=== PATIENT | male | born 1965 | race Caucasian/White ===

== ENCOUNTER 2021-10-21 23:40 | Inpatient (IN) | payer MEDICARE, SELFPAY ==
--- NOTE | 2021-10-21 23:41 | XRR_ITS ---
PROCEDURE INFORMATION: Exam: XR Chest Exam date and time: 10/21/2021 11:41 PM Age: 55 years old Clinical indication: Chest pressure; Prior surgery; Surgery type: Cabg; Patient HX: Severe chest pain. ; Additional info: Cp TECHNIQUE: Imaging protocol: XR of the chest. Views: 1 view. COMPARISON: No relevant prior studies available. FINDINGS: Lungs: There is ill-defined ground-glass opacity in the central lower lungs bilaterally. There is a 7 mm left suprahilar pulmonary nodule or prominent vessel. Pleural spaces: There is no pleural effusion or pneumothorax. Heart/Mediastinum: There is mild enlargement of the cardiac silhouette. Bones/joints: Sternal wires are present. There is no displacement to suggest sternal dehiscence. There are healed right lateral rib fractures. XR/XR chest 1V portable [id number] IMPRESSION: 1. Probable mild pulmonary edema. 2. Cardiac enlargement. 3. 7 mm left lung nodule versus prominent vessel seen on end. Recommend nonemergent follow-up chest CT. Radiation Dose CTDIVOL = (mGy): DLP = (mGy-cm)
--- NOTE | 2021-10-21 23:42 | ECG_ITS ---
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 Measurements Intervals [place] Rate: 131 P: [place]: QRS: 138 QRSD: 136 T: 80 QT: 385 QTc: 570 Interpretive Statements Sinus tachycardia with PVCs INTRAVENTRICULAR CONDUCTION DELAY [130+ ms QRS DURATION] RIGHT VENTRICULAR HYPERTROPHY [SOME/ALL OF: PROMINENT R IN V1, LATE TRANSITION, RAD, KEYSHA, SSS] LATERAL MYOCARDIAL INFARCTION , PROBABLY RECENT [40+ ms Q WAVE AND/OR ST/T ABNORMALITY IN I/aVL/V5/V6] No previous ECG available for comparison Electronically Signed On 10-22-2021 16:05:19 MORTGAGE PROCESSING CLERK by Amira August M.D. [email or web address] [email or web address].Gallery [employer]/store/NU/[id number] f
[2021-10-21 23:49] VITALS: BP 174/100; TEMP 36.4; O2SAT 95; BMI 24.4
--- NOTE | 2021-10-21 23:52 | ED_ITS ---
HPI - Chest Pain General: Chief Complaint: Chest Pain Stated Complaint: CP Time Seen by Provider: 10/21/21 23:41 Source: patient and EMS Mode of arrival: EMS Limitations: no limitations History of Present Illness: HPI narrative: 55-year-old male who is a history of coronary artery disease states that he had a open heart surgery in 2004. States he has not seen his medical insurance collector in years she states that he has been having chest pain since this morning its been constant states he has had a cough and congestion and some dyspnea for days and his pain currently is worse when he coughs he denies any vomiting or diarrhea he has had his Covid vaccine denies any fevers. Denies any recent long trips. Associated symptoms: Reports dyspnea; Deny abdominal pain, fever(s), nausea or vomiting Review of Systems Const: Denies: fever(s), chills, body aches or change in appetite Eyes: Denies: blurry vision or eye discomfort ENMT: Denies: throat pain or dental pain Card: Reports: chest pain Resp: Reports: dyspnea and non-productive cough GI: Denies: abdominal pain, nausea, vomiting or diarrhea : Denies: dysuria Musc: Denies: neck pain or back pain Skin/Breast: Denies: rash Neuro: Denies: headache(s) Psych: Denies: depression Shane/Lymph: Denies: easy bruising All/Imm: Denies: urticaria Physical Exam Const: COMMON NORMALS: no acute distress, patient oriented x3 and healthy appearing HENMT: COMMON NORMALS: normocephalic and atraumatic HEAD & SCALP: normocephalic and atraumatic Eye: COMMON NORMALS: Equal, round and reactive pupils present and EOMs intact bilaterally PUPIL: Yes Equal, round and reactive pupils present Neck/C-Spine: COMMON NORMALS: full ROM and supple Chest: COMMONS NORMALS: normal inspection of the chest and normal palpation of entire chest wall Resp: COMMON NORMALS: normal respiratory effort, No retractions and No use of accessory muscles AUSCULTATION: rales Cardio: COMMON NORMALS: regular rate, regular rhythm and No murmurs present (Cardio) RATE: regular rate RHYTHM: regular rhythm GI: COMMON NORMALS: Normal to inspection, nondistended, normoactive bowel sounds present, Soft to palpation, non-tender and no masses PALPATION: Yes Soft to palpation Extremity: COMMON NORMALS: normal to inspection and full ROM Neuro: COMMON NORMALS: patient oriented x3, moves all extremities and no focal motor deficits Psych: COMMON NORMALS: mental status grossly normal, Normal thought process present and cooperative THOUGHT PROCESS: Normal thought process present Skin: COMMON NORMALS: no rashes or lesions noted and no wounds GENERAL SKIN EXAM: no rashes or lesions noted Course Vital Signs: Vital signs: Vital Signs Temperature 97.6 F 10/21/21 23:49 Pulse Rate 123 H 10/22/21 02:15 Respiratory Rate 24 H 10/22/21 02:15 Blood Pressure 162/106 10/22/21 02:15 Pulse Oximetry 96 10/22/21 02:15 MDM - Chest Pain MDM Narrative: Medical decision making narrative: Patient presents here with chest pain 2-hour troponin elevated consistent with an NSTEMI has been pain-free here patient has congestive heart failure as well as spoke to the hospitalist will admit at this time patient's been stable in the ER. Lab Data: Labs: Lab Results 10/21/21 10/21/21 10/21/21 23:50 23:50 23:50 WBC 15.1 10^3/uL H 10 ^3/uL (4.0-10.0) RBC 5.08 10^6/uL 10^6 /uL (4.1-5.3) Hgb 15.6 g/dL g/dL (11.7-16.6) Hct 47.7 % % (42.0-52.0) MCV 93.9 fl fl (80-94) MCH 30.7 pg pg (28.0-34.0) MCHC 32.7 g/dL g/dL (30.0-36.0) RDW 13.2 % % (12.1-15.1) Plt Count 137 10^3/cmm 10^3 /cmm (130-400) MPV 13.1 fL H fL (7.4-10.4) Neut % (Auto) 93.2 % % Lymph % (Auto) 3.1 % % [place] % (Auto) 3.2 % % Eos % (Auto) 0.0 % % Baso % (Auto) 0.1 % % Neut # (Auto) 14.05 10^3/uL H 1 0^3/uL (1.8-7.7) Lymph # (Auto) 0.5 10^3/uL L 10^ 3/uL (0.8-4.8) [place] # (Auto) 0.5 10^3/uL 10^3/ uL (0.2-0.9) Eos # (Auto) 0.0 10^3/uL 10^3/ uL (0.0-0.8) Baso # (Auto) 0.0 10^3/uL 10^3/ uL (0.0-0.1) Nucleated RBC % (a uto) 0 % % Nucleated RBCs # 0.0 /100WBC /100W BC Sodium 139 mmol/L mmol/L (136-145) Potassium 3.2 mmol/L L mmol /L (3.5-5.1) Chloride 102 mmol/L mmol/L (98-107) Carbon Dioxide 16 mmol/L L mmol/ L (22-29) Anion Gap 24.2 H (5-19) BUN 16 mg/dL mg/dL (6-20) Creatinine 1.3 mg/dL H mg/dL (0.7-1.2) GFR Calculation 57.3 mL/min L mL/ min (90-130) Glucose 191 mg/dL H mg/dL (65-115) Calculated Osmolal ity 294 mOsm/kg mOsm/ kg (285-295) Calcium 8.8 mg/dL mg/dL (8.5-10.5) Total Bilirubin 0.4 mg/dL mg/dL (0.15-1.2) AST 19 U/L U/L (0-40) ALT 26 U/L U/L (0-41) Alkaline Phosphata se 80 IU/L IU/L (40-130) Troponin T Baselin e 65 ng/L H ng/L (0-15) Troponin T 120 Min [place] Delta Troponin T NT-Pro-B Natriuret Pep Total Protein 6.7 g/dL g/dL (6.6-8.7) Albumin 4.4 g/dL g/dL (3.5-5.2) Globulin 2.3 g/dL g/dL (1.3-4.6) SARS-CoV-2 Ag (Rap id) 10/21/21 10/22/21 10/22/21 23:50 00:10 01:03 WBC RBC Hgb Hct MCV MCH MCHC RDW Plt Count MPV Neut % (Auto) Lymph % (Auto) [place] % (Auto) Eos % (Auto) Baso % (Auto) Neut # (Auto) Lymph # (Auto) [place] # (Auto) Eos # (Auto) Baso # (Auto) Nucleated RBC % (a uto) Nucleated RBCs # Sodium Potassium Chloride Carbon Dioxide Anion Gap BUN Creatinine GFR Calculation Glucose Calculated Osmolal ity Calcium Total Bilirubin AST ALT Alkaline Phosphata se Troponin T Baselin e Troponin T 120 Min [place] 148.8 ng/L H ng/L (0-15) Delta Troponin T 83.8 ABS# H* ABS# (0-10) NT-Pro-B Natriuret Pep 3298 pg/mL H pg/m L (0-125) Total Protein Albumin Globulin SARS-CoV-2 Ag (Rap id) Negative (Negative) EKG Data^: EKG 1: Attestation: I personally reviewed and interpreted this EKG as follows: EKG interpretation date: 10/21/21 EKG interpretation time: 23:55 Interpretation: sinus tach hr 131 no stemi qrs 136 qtc 462 Discharge Plan Discharge Patient Disposition: Admitted As Inpatient Admit Provider: Evelyn Otero Clinical Impression: Non-ST elevation MT (NSTEMI) Condition: Stable Coding Level of Care Code ED Hot Box Checker for Chg Fwd Exam Comprehensive
[2021-10-21 23:58] LABS: Basophils % 0.1 %; Hematocrit 47.7 % (42.0-52.0); Hemoglobin 15.6 g/dL (11.7-16.6); Lymphocytes # 0.5 10^3/uL (0.8-4.8); Lymphocytes % 3.1 %; Mean Corpuscular HGB Conc 32.7 g/dL (30.0-36.0); Mean Corpuscular Hemoglobin 30.7 pg (28.0-34.0); Mean Corpuscular Volume 93.9 fl (80-94); Mean Platelet Volume 13.1 fL (7.4-10.4); Monocytes # 0.5 10^3/uL (0.2-0.9); Monocytes % 3.2 %; Neutrophils # 14.05 10^3/uL (1.8-7.7); Neutrophils % 93.2 %; Nucleated Red Blood Cells % 0 %; Platelet Count 137 10^3/cmm (130-400); Red Blood Count 5.08 10^6/uL (4.1-5.3); Red Cell Distribution Width 13.2 % (12.1-15.1); White Blood Count 15.1 10^3/uL (4.0-10.0)
[2021-10-22] VITALS (47 sets, daily range): BP systolic 99–162; BP diastolic 63–120; PULSE 18–132; RESP 15–36; TEMP 37.1–37.3; O2SAT 85–96; BMI 24.2
[2021-10-22 00:20] LABS: Troponin(5th) Baseline 65 ng/L (0-15)
[2021-10-22 00:22] LABS: Alanine Aminotransferase 26 U/L (0-41); Albumin Level 4.4 g/dL (3.5-5.2); Alkaline Phosphatase 80 IU/L (40-130); Anion Gap 24.2 (5-19); Aspartate Amino Transferase 19 U/L (0-40); Blood Urea Nitrogen 16 mg/dL (6-20); Calcium 8.8 mg/dL (8.5-10.5); Carbon Dioxide 16 mmol/L (22-29); Chloride 102 mmol/L (98-107); Globulin 2.3 g/dL (1.3-4.6); Glomerular Filtration Rate 57.3 mL/min (90-130); Glucose 191 mg/dL (65-115); Osmolality Calculated 294 mOsm/kg (285-295); Potassium 3.2 mmol/L (3.5-5.1); Sodium 139 mmol/L (136-145); Total Bilirubin 0.4 mg/dL (0.15-1.2); Total Protein 6.7 g/dL (6.6-8.7)
[2021-10-22 00:30] LABS: SARS Covid-2 Antigen Negative (Negative)
[2021-10-22] MEDS: sodium chloride 0.9% 1,000 ML 999 ML IV (01:05)
--- NOTE | 2021-10-22 01:22 | CTR_ITS ---
PROCEDURE INFORMATION: Exam: CTA Chest With Contrast Exam date and time: 10/22/2021 1:22 AM Age: 55 years old Clinical indication: Cough and shortness of breath; Chest pressure; Prior surgery; Surgery type: Cabg; Patient HX: Central chest pain with cough and SOB. TECHNIQUE: Imaging protocol: Computed tomographic angiography of the chest with contrast. 3D rendering (Not supervised by radiologist): MIP and/or 3D reconstructed images were created by the technologist. Radiation optimization: All CT scans at this facility use at least one of these dose optimization techniques: automated exposure control; mA and/or kV adjustment per patient size (includes targeted exams where dose is matched to clinical indication); or iterative reconstruction. Contrast material: VISI 320; Contrast volume: 62 ml; Contrast route: INTRAVENOUS (IV); COMPARISON: CR (CHEST, ) 10/21/2021 11:55 PM RADIATION DOSE METRICS: Total DLP (mGy-cm): 633.9 FINDINGS: Pulmonary arteries: No pulmonary embolism. There is enlargement of the pulmonary vascularity. Aorta: 3.9 x 3.6 cm infrarenal abdominal aortic aneurysm with large amount of mural thrombus. Lungs: There is thickening of the interstitial markings. Pleural spaces: Small bilateral pleural effusions. Heart: The heart is mildly enlarged. Lymph nodes: Multiple, nonspecific, enlarged mediastinal lymph nodes, likely reactive. Bones/joints: There has been a median sternotomy. Soft tissues: Unremarkable. CT/CT angio chest PE protcl [id number] IMPRESSION: 1. No pulmonary embolism. 2. Congestive heart failure. 3. 3.9 x 3.6 cm infrarenal abdominal aortic aneurysm with large amount of mural thrombus. 4. Small bilateral pleural effusions. 5. Multiple, nonspecific, enlarged mediastinal lymph nodes, likely reactive. Radiation Dose CTDIVOL = (mGy): DLP = 633.9 (mGy-cm)
[2021-10-22 01:28] LABS: NT Pro B Type Natriuretic Pept 3298 pg/mL (0-125)
[2021-10-22 01:45] LABS: Troponin 5 2HR 148.8 ng/L (0-15); Troponin 5 2HR Delta 83.8 ABS# (0-10)
[2021-10-22] MEDS: iodixanol 320 mg/mL 100mL Btl IV (01:59)
[2021-10-22] MEDS: enoxaparin 80 mg/0.8 mL Syringe SUBCUT ×2 (02:22→13:24)
--- NOTE | 2021-10-22 03:52 | USCV_ITS ---
BLADIMIR LLOYD Age: 55 Gender: M : 1965 Exam Date: 10/22/2021 13:04 Ordering Phys: Evelyn Otero MD Technologist: Reed Valera [place] [facility] [place]: NSTEMI BP: 130 / 86 HR: 103 Rhythm: Sinus Technical Quality: Adequate MEASUREMENTS (Male / Female) Normal Values 2D ECHO LV Diastolic Diameter PLAX 5.5 cm 4.2 - 5.9 / 3.9 - 5.3 cm LV Systolic Diameter PLAX 4.9 cm IVS Diastolic Thickness 1.2 cm 0.6 - 1.0 / 0.6 - 0.9 cm IVS Systolic Thickness 1.5 cm LVPW Diastolic Thickness 1.8 cm 0.6 - 1.0 / 0.6 - 0.9 cm LVPW Systolic Thickness 1.6 cm LVOT Diameter 2.0 cm LV Ejection Fraction 2D Teich 23.2 % LV Ejection Fraction MOD 2C 10.5 % LV Ejection Fraction 2C AL 13.8 % LA Diameter 4.8 cm LA Width 4.3 cm LA Height 6.3 cm RA Width 4.2 cm RA Height 5.6 cm Aorta at Sinotubular Diameter 3.0 cm M-MODE Aortic Annulus Diameter 3.5 cm LA Ao Ratio MM 1.5 DOPPLER AV Peak Velocity 81.7 cm/s LVOT Peak Velocity 60.0 cm/s AV Area Cont Eq vti 2.3 cm squared AV Area Cont Eq pk 2.3 cm squared MV E' Velocity 4.0 cm/s TR Peak Velocity 412.1 cm/s TR Peak Gradient 67.9 mmHg TR Mean Velocity 284.0 cm/s TR Mean Gradient 36.0 mmHg TR Velocity Time Integral 114.8 cm RV Acceleration Time 0.1 s RV Ejection Time 0.3 s RV AcT/ET 0.4 FINDINGS Left Ventricle Mildly increased left ventricular cavity size with increased left ventricular wall thickness. Eccentric left ventricular hypertrophy. Severely decreased left ventricular systolic function. Left ventricular ejection fraction is estimated at 25 %. Global hypokinesis with severe hypokinesis of basal to mid anterior, basal inferior vega. Abnormal diastolic function. Right Ventricle Moderately dilated right ventricle with moderately decreased right ventricle systolic function. Right ventricular systolic pressure 69 mmHg. Right Atrium Normal right atrial size. Right atrial pressure estimated at 15 mmHg. Left Atrium Moderately increased left atrial size. Mitral Valve Restricted movement of posterior mitral valve leaflet. No mitral valve stenosis. At least moderate somewhat posteriorly directed mitral valve regurgitation. Aortic Valve Mildly thickened trileaflet aortic valve. No aortic valve stenosis. No aortic valve regurgitation. Tricuspid Valve Structurally normal tricuspid valve. Moderate tricuspid valve regurgitation. Pulmonic Valve Structurally normal pulmonic valve. No pulmonary valve stenosis. Trace pulmonary valve regurgitation. Pericardium No pericardial effusion. Aorta Normal size aortic root and dilated proximal ascending aorta measured anteroposteriorly at 3.9 cm. Dilated inferior vena cava with less than 50% respiratory variation. CONCLUSIONS 1. Mildly increased left ventricular cavity size. Eccentric left ventricular hypertrophy. Severely decreased left ventricular systolic function. Left ventricular ejection fraction is estimated at 25 %. Global hypokinesis with severe hypokinesis of basal to mid anterior, basal inferior vega. Abnormal diastolic function. 2. Moderately dilated right ventricle with moderately decreased right ventricle systolic function. 3. Severe pulmonary hypertension with pulmonary artery pressure estimated at 69 mmHg. 4. At least moderate somewhat posteriorly directed mitral valve regurgitation. 5. Moderate tricuspid valve regurgitation. 6. Dilated proximal ascending aorta measured anteroposteriorly at 3.9 cm. 7. No prior similar studies to compare. Amira Auugst MD (Electronically Signed) Final Date: 22 October 2021 16:25 S
[2021-10-22] MEDS: metoprolol tartrate 25 mg Tablet 12.5 MG PO ×3 (04:25→08:44)
[2021-10-22] MEDS: FUROsemide 10 mg/mL SDV 2mL 20 MG IVP (04:25)
[2021-10-22] MEDS: potassium chloride ER 20 mEq Tablet 40 MEQ PO ×2 (04:25→11:33)
--- NOTE | 2021-10-22 05:30 | P.HP_ITS ---
Providers/Chief Complaint Admitting Physician: Evelyn Otero MD Chief Complaint: CP History of Present Illness BLADIMIR LLOYD is a 55 year old male with PMH CAD s/p CABG many years ago lost to follow up presenting to the ER today c/o chest pain whc=ihc has been intermittent for the past few days, worsened since tis morning. Also c/o wor sening dyspnea, orthopnea over this same time frame. Chest pain resolved with being given morphine and S/L nitroglycerin. EKG shows sinus tachycardia, ST-T wave depressions in Avl, V5,V6 and prolonged qtc interval >500msec. Baseline troponin at 65, 2 hr delta at >80. Cta chest shows no PE, small B/L pleural effusions, 3.9 x 3.6 cm infrarenal abdominal aortic aneurysm with large amount of mural thrombus. Review of Systems General: Reports: 10 or more systems reviewed and unremarkable except in HPI and below Const: Denies: fever(s), chills or body aches Eyes: Denies: change in vision, blurry vision or photophobia ENMT: Reports: hoarseness; Denies: throat pain, enlarged tonsils, odynophagia or nasal congestion Card: Denies: chest pain, palpitations, irregular heart rhythm, edema, swelling of feet/ankles, lightheadedness, pre-syncope, dyspnea on exertion or orthopnea Resp: Denies: dyspnea, productive cough, non-productive cough, wheezing, stridor, pain on inspiration, change in phlegm color, hemoptysis or chest congestion GI: Denies: abdominal pain, nausea, vomiting, hematemesis, coffee ground emesis, dysphagia, heartburn, diarrhea, constipation, GI cramping, change in stool character, hematochezia or melena : Denies: flank pain, dysuria, urinary frequency, urinary urgency, urinary hesitancy or hematuria Musc: Denies: neck pain, back pain, extremity pain, joint swelling, joint warmth or deformity Neuro: Denies: headache(s), numbness in extremities, weakness in extremities, sensory changes, difficulty walking, frequent falls, dizziness, vertigo, behav ioral changes, Slurred speech present or seizure-like activity Psych: Denies: anxiety, depression, suicidal ideation or homicidal ideation Endo: Denies: polyuria, polydipsia, tired all the time, cold intolerance or hot flashes Shane/Lymph: Denies: easy bruising or easy bleeding Medications/Allergies Home Medications Medication Instructions Recorded Confirmed Last Taken Type No Known Home Medications 10/22/21 10/22/21 Unknown History Allergies Allergy/AdvReac Type Severity Reaction Status Date / Time No Known Allergies Allergy Verified 10/22/21 03:43 PFSH Acute PFSH: Medical History (Updated 10/22/21 @ 05:44 by Evelyn Otero MD) CAD (coronary artery disease) Vitals/I&O/Wt Last Vital Signs Temp 99.2 F 10/22/21 04:09 Pulse 126 H 10/22/21 04:09 Resp 18 10/22/21 05:10 BP 153/91 10/22/21 04:09 Pulse Ox 93 10/22/21 05:10 10/21/21 10/21/21 10/22/21 14:59 22:59 06:59 Intake Total 1480 / 1480 Output Total 250 / 250 Balance 1230 / 1230 Weight last 48 hrs Weight 83.325 kg Weight 83.325 kg Weight 83.915 kg Physical Exam Narrative: EXAM NARRATIVE: General: No acute distress, AO x3 HEENT: PERRLA, pupils bilaterally equal and reactive, pallors not present Chest: Normal vesicular breath sounds, no added sounds, equal good air entry bilaterally CVS: S1-S2 regular, no murmurs, no tachycardia, no gallops, no rubs Abdomen: Soft, nontender, no organomegaly, bowel sounds present Neuro: No focal deficits, no facial deformity, AO x3, power 5/5 in all limbs Data : 10/21/21 23:50 10/21/21 23:50 A&P Assessment and plan (1) Non-ST elevation TN (NSTEMI): Elevated troponins with 2 hr delta at >80, EKG changes as above Start Asa 81mg, atorvastatin 40mg, metoprolol 12.5mg po BID Note made of AAA with mural trombus start lovenox 1mg/kg q12h check mag level given prolonged qtc Lasix 20mg iv x 1 as patient is lasix naive- closely monitor urine output, kidney function whil on diuresis Supplement K with 40meq po KCL prn morhine for pain control Cardiology has been consulted from ER NPO post midnight in case of cardiac cath Status: Acute (2) CHF (congestive heart failure): Status: Acute Attestations Medical Necessity Statement*: >2midnight admission anticipated for above defined care Coding Level of Care Code Acute Turf And Grounds Supervisor for Ev De Paz Diagnoses Non-ST elevation TN (NSTEMI) I21.4 CHF (congestive heart failure) I50.9
--- NOTE | 2021-10-22 05:42 | ECG_ITS ---
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 Measurements Intervals [place] Rate: 114 P: 85 NM: 131 QRS: 143 QRSD: 129 T: 69 QT: 364 QTc: 502 Interpretive Statements SINUS TACHYCARDIA LEFT ATRIAL ENLARGEMENT [-0.15mV P WAVE IN V1/V2] POSSIBLE RIGHT VENTRICULAR HYPERTROPHY [SOME/ALL OF: PROMINENT R IN V1, LATE TRANSITION, RAD, KEYSHA, SSS] Compared to ECG 10/21/2021 23:55:48 Intraventricular conduction delay no longer present Myocardial infarct finding no longer present Electronically Signed On 10-23-2021 6:37:45 ENVIRONMENTAL CHANGE ANALYST by Amira August M.D. [id number]
--- NOTE | 2021-10-22 06:18 | PC.NURSE ---
Admit Note Patient admitted to [facility] room 106 from ED via wheelchair. Patient up ambulating room. Denies pain at admission. Noted patient to have elevated heart rate. Dr Otero notified. Covering service notified. Patient presents with increased work of breathing and chest pain which is worse with exertion. Orders reviewed & will continue to monitor. Patient and/or inside sales account representative oriented to environment, equipment, and informed of the following as found in the admission booklet: patient rights & responsibilities, visitor policy, hand and respiratory hygiene practice. Other education includes: metoprol, magnesium, lasix, potassium. Patient verbalized complete understanding.
--- NOTE | 2021-10-22 06:44 | PM.CONSULT ---
Providers/Reason For Consult Consulting Physician/Specialty*: Dr. August, Cardiology Reason for Consult*: NSTEMI Attending Physician: Evelyn Otero MD History of Present Illness History of Present Illness BLADIMIR LLOYD is a 55 year old male with past medical history of premature coronary artery disease s/p CABG x3 in 2004, history of MN prior to that, history of stroke with right-sided weakness in early 1999, hypertension and chronic active smoker (2 pack/day for several years now is down to half pack per day). He has not seen a doctor in the last 10 years and is not taking any medications at home. His bypass surgery was at [facility] as per patient. He is new to our system and I do not have any of his records available. Patient started having shortness of breath on exertion since May or June that has progressively worsened over the last 2 months. He complains of orthopnea and some swelling in his legs. Complained of some chest tightness yesterday prior to arrival to ER physician and admitting physician that has since resolved. He denied having any chest pressure or pain during my evaluation. No fever, chills, hematochezia, melena or hematuria. Baseline troponin T was 65 that increased to 149 at 2 hours and at 393 at 6 hours. NT proBNP of 3298. His potassium was 3.2 and creatinine 1.3 on arrival. EKG on arrival showed sinus tachycardia with isolated PVCs, IVCD. Right axis deviation. Probably recent lateral MN. He received Lasix 20 mg IV x1 and received weight-based therapeutic Lovenox. He was started on ACS protocol and was admitted for further evaluation. He walked to the bathroom this morning and developed shortness of breath and became diaphoretic. He has been placed on BiPAP. Bumex and nitro drip were ordered which have not been started yet. EKG this morning with sinus tachycardia, left atrial enlargement interventricular conduction delay and inferolateral ST depression. Review of Systems General: Reports: 10 or more systems reviewed and unremarkable except in HPI and below Const: Denies: fever(s), chills or body aches Eyes: Denies: change in vision ENMT: Reports: hoarseness Card: Reports: swelling of feet/ankles and dyspnea on exertion; Denies: chest pain, palpitations, irregular heart rhythm, edema, lightheadedness or orthopnea Resp: Denies: dyspnea, productive cough, non-productive cough, wheezing, stridor, hemoptysis or chest congestion GI: Denies: abdominal pain, nausea, vomiting, hematemesis, coffee ground emesis, dysphagia, heartburn, diarrhea, constipation, hematochezia or melena : Denies: flank pain, dysuria, urinary frequency, urinary urgency or hematuria Musc: Denies: neck pain, back pain, extremity pain, joint swelling, joint warmth or deformity Neuro: Reports: weakness in extremities (Chronic left-sided) and difficulty walking; Denies: headache(s), numbness in extremities, sensory changes, frequent falls, dizziness, vertigo, behavioral changes or seizure-like activity Psych: Denies: anxiety or depression Endo: Denies: polyuria, polydipsia, tired all the time or cold intolerance Shane/Lymph: Denies: easy bruising or easy bleeding Meds/Allergies Home Medications and Allergies Home Medications Medication Instructions Recorded Confirmed Last Taken Type No Known Home Medications 10/22/21 10/22/21 Unknown History Allergies Allergy/AdvReac Type Severity Reaction Status Date / Time No Known Allergies Allergy Verified 10/22/21 03:43 Current Medications Current Medications Generic Name Dose Route Start Last Admin Trade Name Freq PRN Reason Stop Dose Admin Metoprolol Tartrate 12.5 mg 10/22/21 07:00 10/22/21 05:44 Metoprolol Tartrate 25 Mg Tablet PO 12.5 mg BID@0900,2100 PENNY Administration PFSH Acute PFSH: Medical History (Updated 10/22/21 @ 08:58 by Amira August MD) CAD (coronary artery disease) Dyslipidemia HTN (hypertension) Stroke Surgical History (Updated 10/22/21 @ 08:58 by Amira August MD) S/P CABG x 3 Vitals/I&O/Wt Last Vital Signs Temp 99.2 F 10/22/21 04:09 Pulse 115 H 10/22/21 06:16 Resp 18 10/22/21 05:10 BP 153/91 10/22/21 04:09 Pulse Ox 93 10/22/21 05:10 10/21/21 10/21/21 10/22/21 14:59 22:59 06:59 Intake Total 1971 / 1971 Output Total 1150 / 1150 Balance 822 / 822 Weight last 48 hrs Weight 183 lb 11.2 oz Weight 183 lb 11.2 oz Weight 185 lb Physical Exam Narrative: EXAM NARRATIVE: GENERAL: Averagely built and averagely nourished in no acute distress HEENT: Pupils equal round reactive to light. No pallor or icterus. NECK: No JVD, No carotid bruit. CARDIOVASCULAR SYSTEM: S1-S2 regular. No S3 or S4 present. No murmur rubs or gallops. RESPIRATORY SYSTEM: Chest clear to auscultation. No wheezes. bilateral rales+ ABDOMEN: Soft, nontender and nondistended. Normal bowel sounds present. EXTREMITIES: No cyanosis No edema. No signs of chronic venous insufficiency. ADVERTISING SOLICITOR: Patient is alert oriented ?3. Right upper and lower extremity weakness Data Imaging^: CTA Chest: Radiologist's impression: IMPRESSION: 1. No pulmonary embolism. 2. Congestive heart failure. 3. 3.9 x 3.6 cm infrarenal abdominal aortic aneurysm with large amount of mural thrombus. 4. Small bilateral pleural effusions. 5. Multiple, nonspecific, enlarged mediastinal lymph nodes, likely reactive. CXR: Radiologist's impression: IMPRESSION: 1. Probable mild pulmonary edema. 2. Cardiac enlargement. 3. 7 mm left lung nodule versus prominent vessel seen on end. Recommend nonemergent follow-up chest CT. A&P Assessment and plan (1) Non-ST elevation MN (NSTEMI): Continue aspirin, Lipitor low-dose metoprolol and Lovenox -Follow-up on echocardiogram -Agree with nitroglycerin drip and BiPaP -I will plan for coronary angiogram once more euvolemic Status: Acute (2) CHF (congestive heart failure): -Patient is due to receive Bumex 1 mg IV x1 this morning -Near 1.1 L of urine output overnight. May need another dose this afternoon -Follow-up on echocardiogram Status: Acute (3) HTN (hypertension): Status: Acute (4) Dyslipidemia: Status: Acute Additional A&P Information Coronary disease s/p CABG x3 Bilateral pleural effusion Infrarenal aortic aneurysm JAMIE secondary to renovascular congestion: Improving with diuresis Hypokalemia: Replaced Chronic active smoker Noncompliant History of stroke with residual right-sided weakness Thank you for allowing me to participate in patient's care. Please feel free to call with questions or concerns. Consult Attestations Time Spent in Patient Care: 16 - 35 minutes (>than 50% of time spent in counselling and/or direct pt care on unit). Coding Level of Care Code Acute Butcher Apprentice for Chg Fwd Diagnoses Non-ST elevation MN (NSTEMI) I21.4 CHF (congestive heart failure) I50.9 HTN (hypertension) I10 Dyslipidemia E78.5
[2021-10-22 07:03] LABS: Alcohol Level < 10 mg/dL (0-10)
[2021-10-22 07:06] LABS: Troponin 5 6HR 393.4 ng/L (0-15); Troponin 5 6HR Delta 328.4 ng/L (0-12)
[2021-10-22 07:10] LABS: Procalcitonin 0.04 ng/mL (0-0.5)
[2021-10-22 07:21] LABS: Anion Gap 19.5 (5-19); Blood Urea Nitrogen 16 mg/dL (6-20); Calcium 8.5 mg/dL (8.5-10.5); Carbon Dioxide 19 mmol/L (22-29); Chloride 105 mmol/L (98-107); Glomerular Filtration Rate 62.9 mL/min (90-130); Glucose 141 mg/dL (65-115); Magnesium 1.9 mg/dL (1.7-2.3); Osmolality Calculated 294 mOsm/kg (285-295); Potassium 3.5 mmol/L (3.5-5.1); Sodium 140 mmol/L (136-145)
--- NOTE | 2021-10-22 08:00 | PC.NURSE ---
Initial pt rounding Pt went to the bathroom this morning. when up and walking around, he started to have increase in shortness of breath, diaphoresis and clammy skin. BP is elevated in upper 160s systolic and upper 100s diastolic. Dr. Layne in room and received orders to give Bumex 1 mg IVP once, start pt on Nitro drip per protocol for hypertension, start pt on duoneb and BIPAP. orders received per verbal and read back to doctor. Notififed RT. Pt is tolerating his BIPAP.
--- NOTE | 2021-10-22 08:03 | ECG_ITS ---
[facility] Test Date: 2021-10-22 Pat Name: BLADIMIR LLOYD Department: Room: 106 Gender: Male Business Intelligence Architect: : 1965 Requested By: Annabel Layne Order Number: [id number] Brendan MD: Amira August M.D. Measurements Intervals [place] Rate: 100 P: 73 VA: 145 QRS: 151 QRSD: 129 T: 89 QT: 411 QTc: 531 Interpretive Statements SINUS TACHYCARDIA LEFT ATRIAL ENLARGEMENT [-0.15mV P WAVE IN V1/V2] POSSIBLE RIGHT VENTRICULAR HYPERTROPHY [SOME/ALL OF: PROMINENT R IN V1, LATE TRANSITION, RAD, KEYSHA, SSS] MODERATE ST DEPRESSION [0.05+ mV ST DEPRESSION] Compared to ECG 10/22/2021 05:02:41 ST (T wave) deviation now present Electronically Signed On 10-22-2021 16:04:15 BUSINESS ANALYSIS CONSULTANT by Amira August M.D. [id number]
[2021-10-22] MEDS: ipratropium-albuterol 3 mL Neb INHALATION ×3 (08:11→19:36)
--- NOTE | 2021-10-22 08:30 | PC.NURSE ---
Doctor rounding Dr. August at bedside. notified her on pt's increase shortness of breath, freq pvc's and Non sustained vtach and orders from hospitalist to nitro drip and bumex one time IVP. Received orders verbally and read back to dr august to start pt on potassium oral 40 meq once and magnesium 2 gm IV. will keep monitoring on pt urine output post bumex iv. discuss to pt the importance of strict I and O's, electrolytes replacement and fluid restriction due to his CHF. pt verbalizes understanding
[2021-10-22] MEDS: aspirin 81 mg EC Tablet PO (08:43)
[2021-10-22] MEDS: pantoprazole DR 40 mg Tablet PO (08:44)
[2021-10-22] MEDS: bumetanide 0.25 mg/mL SDV 4 mL 1 MG IVP (08:44)
[2021-10-22] MEDS: nitroglycerin drip 50 MG/250 ML PREMIX IV (08:45)
--- NOTE | 2021-10-22 10:02 | PC.CHAP ---
Pastoral Care Encounter/Spiritual Assessment Type of Contact [] Declined claims assistant visit [] Patient/Family/Request visit [] Outpatient visit [] Follow-up visit [] Physician referral [] Code/Alert [] Routine visit [] Staff referral [] Actively dying [] Patient sleeping [] Family support [] [] Out of room [] Palliative care [] [x] Receiving care in room [] Pre-surgical visit [] Trauma [x] Long length of stay [] ICU visit [x] Other: CP under saff care Relational/Emotional Strength [] Patient feels connected with others/family/visitors/staff [] Distress [] Loneliness/isolation [] Abandonment Spirituality of Patient [] Person of Nida [] Attends Temple of their Nida [] Believes in Prayer [] Reads Bible or Yarsani materials [] There are Spiritual issues to be addressed Service Shop Foreman Interventions [] Prayer [] Active listening [] Non-anxious presence [] Spiritual/emotional support [] Crisis/trauma care [] Spiritual counseling [] Bereavement support [] Provided bereavement packet [] Provided Bible/devotional materials [] Provided toy/stuffed animal, coloring book to patient or family member [] Provided Communion [] Anointing/Bolt [] Salvation [] Completed spiritual assessment [] Other: Impact on Illness or Injury [] Angry [] Fearful [] Anxious [] Often cries [] Exhaustion [] Unable to work [] Unable to attend caodaism [] Unable to walk/stand [] Unable to read [] Unable to drive [] Unable to eat/drink [] Unable to sleep [] Unable to be with family [] Patient intubated [] Other: Summary CP under saff care Time spent with patient 5 mins
[2021-10-22] MEDS: magnesium sulfate premix 2 GM/50 ML PIGGYBACK IV (11:34)
--- NOTE | 2021-10-22 11:42 | PM.MISC ---
Miscellaneous Note Note: Patient is stating that yesterday when he went outside to look for his dog he probably overworked and exerted himself too much which brought his symptoms. He has history of CABGx 01/2005 Currently not experiencing active chest pain however experiencing orthopnea and PND this morning he was a bit tachypneic and diaphoretic Requested DuoNeb treatment along BiPAP given given 1 dose of IV Bumex Patient was sitting at the bedside S1, S2 Crackles heard at the base of the lungs No active wheezing Saturating well on room air Restaurant distress tachypneic respiratory rate 20s No active chest pain EOMI, PERRLA Clinical signs of mild mild fluid overload Plan: Cardiology to see patient today N.p.o. BiPAP, Bumex IV push 1 mg, DuoNeb treatment NSTEMI: ACS protocol 8 seconds of V. tach however EKG showing incomplete right bundle branch block, magnesium repleted this morning We will follow up with cardiology recommendations
[2021-10-22] MEDS: metoprolol tartrate 25 mg Tablet PO ×2 (13:24→21:06)
[2021-10-22] MEDS: lidocaine 1% 5 ML in potassium chloride premix 100 ML 50 ML IV (13:39)
[2021-10-22] MEDS: bumetanide 0.25 mg/mL SDV 10 mL 2 MG IVP (15:31)
--- NOTE | 2021-10-22 17:30 | PC.NURSE ---
Doctor notified on pt's anxiety Pt became anxious, HR- upper 100s, on BIPAP. spo2 is maintains at 92-94%. Notified dr if we can start pt on any medication for anti-anxiety.
[2021-10-22] MEDS: lisinopril 10 mg Tablet PO (18:12)
[2021-10-22] MEDS: ALPRAZolam 0.5 mg Tablet PO (18:12)
--- NOTE | 2021-10-22 19:00 | PC.NURSE ---
Shift Note Frequent safety and comfort rounds continue. Orders and/or nursing care completed as indicated. Patient monitored for response to intervention and treatment(s). Education provided includes Fluid restriction due to his CHF, Bumex IVP, BIPAP use and breathing treatment, electrolytes replacement. Patient and/or treasury representative verbalizes understanding. Will continue to monitor.
[2021-10-22 19:04] LABS: Blood Urea Nitrogen 19 mg/dL (6-20); Carbon Dioxide 25 mmol/L (22-29); Chloride 103 mmol/L (98-107); Glomerular Filtration Rate 57.3 mL/min (90-130); Glucose 111 mg/dL (65-115); Magnesium 2.5 mg/dL (1.7-2.3); Osmolality Calculated 291 mOsm/kg (285-295); Sodium 139 mmol/L (136-145)
[2021-10-22] MEDS: atorvastatin 40 mg Tablet 80 MG PO (21:06)
[2021-10-23] VITALS (19 sets, daily range): BP systolic 110–148; BP diastolic 72–104; PULSE 79–105; RESP 16–27; TEMP 36.3–36.5; O2SAT 91–97
[2021-10-23] MEDS: enoxaparin 80 mg/0.8 mL Syringe SUBCUT ×2 (02:16→16:22)
[2021-10-23 03:56] LABS: Basophils # 0.1 10^3/uL (0.0-0.1); Basophils % 0.3 %; Eosinophils # 0.1 10^3/uL (0.0-0.8); Eosinophils % 0.6 %; Hematocrit 46.7 % (42.0-52.0); Hemoglobin 15.3 g/dL (11.7-16.6); Lymphocytes # 2.4 10^3/uL (0.8-4.8); Lymphocytes % 11.2 %; Mean Corpuscular HGB Conc 32.8 g/dL (30.0-36.0); Mean Corpuscular Hemoglobin 31.2 pg (28.0-34.0); Mean Corpuscular Volume 95.3 fl (80-94); Mean Platelet Volume 12.8 fL (7.4-10.4); Monocytes # 1.5 10^3/uL (0.2-0.9); Monocytes % 6.7 %; Neutrophils # 17.59 10^3/uL (1.8-7.7); Neutrophils % 80.7 %; Nucleated Red Blood Cells % 0 %; Platelet Count 143 10^3/cmm (130-400); Red Cell Distribution Width 13.7 % (12.1-15.1); White Blood Count 21.8 10^3/uL (4.0-10.0)
[2021-10-23 04:09] LABS: Estmated Average Glucose 108; Hemoglobin A1C 5.4 % (4.0-6.0)
[2021-10-23 04:25] LABS: Chol HDL Ratio 6.69 mg/dL (1.0-5.00); Cholesterol 234 mg/dL (0-200); HDL Cholesterol 35 mg/dL (60-100); LDL Cholesterol Calculated 176 mg/dL (50-129); LDL HDL Ratio 5.03 RATIO (0.00-3.22); Triglycerides 117 mg/dL (0-150)
[2021-10-23 04:31] LABS: Alanine Aminotransferase 28 U/L (0-41); Albumin Level 3.8 g/dL (3.5-5.2); Alkaline Phosphatase 76 IU/L (40-130); Anion Gap 14.5 (5-19); Aspartate Amino Transferase 73 U/L (0-40); Blood Urea Nitrogen 24 mg/dL (6-20); Calcium 8.7 mg/dL (8.5-10.5); Carbon Dioxide 24 mmol/L (22-29); Chloride 104 mmol/L (98-107); Globulin 2.9 g/dL (1.3-4.6); Glomerular Filtration Rate 57.3 mL/min (90-130); Glucose 110 mg/dL (65-115); Magnesium 2.3 mg/dL (1.7-2.3); Osmolality Calculated 291 mOsm/kg (285-295); Potassium 4.5 mmol/L (3.5-5.1); Sodium 138 mmol/L (136-145); Total Bilirubin 0.8 mg/dL (0.15-1.2); Total Protein 6.7 g/dL (6.6-8.7)
[2021-10-23] MEDS: levoFLOXacin 750 mg Tablet PO (06:24)
--- NOTE | 2021-10-23 09:10 | PC.NURSE ---
Pt lying in bed resting and talking to girlfriend. Hob at 45 degree. Pt had no c/o pain or discomfort at the present time. No needs voiced. Call light in reach. Will cont to monitor.
[2021-10-23] MEDS: bumetanide 0.25 mg/mL SDV 10 mL 2 MG IVP (10:38)
[2021-10-23] MEDS: metoprolol tartrate 50 mg Tablet PO (10:39)
[2021-10-23] MEDS: aspirin 325 mg Tablet PO (10:39)
[2021-10-23] MEDS: lisinopril 10 mg Tablet PO (10:40)
[2021-10-23] MEDS: pantoprazole DR 40 mg Tablet PO (10:40)
--- NOTE | 2021-10-23 12:15 | PM.PN ---
Subjective Subjective: Interval history: Patient is stating that he is feeling much better today, he has noted significant provement in his conversational dyspnea, orthopnea and PND has slightly improved, this morning he was on room air, came out of bathroom, Blood pressure 130/89 mmHg, off nitro drip No active chest pain Plan for cardiac cath later today, antihypertensive regimen added Vitals/I&O/Wt Last Vital Signs Temp 97.7 F 10/23/21 02:29 Pulse 102 H 10/23/21 08:00 Resp 27 H 10/23/21 08:00 BP 130/89 10/23/21 08:00 Pulse Ox 96 10/23/21 08:00 10/22/21 10/23/21 10/23/21 22:59 06:59 14:59 Intake Total 478.75 / 878.125 334.65 / 1212.775 240 / 240 Output Total 1550 / 2360 175 / 2535 200 / 200 Balance -1071.25 / -1481.875 159.65 / -1322.225 40 / 40 Weight last 48 hrs Weight 80.422 kg Weight 83.325 kg Weight 83.325 kg Weight 83.915 kg Physical Exam Narrative: EXAM NARRATIVE: Patient was sitting at the bedside Much more awake and alert No active respiratory distress Saturating well on room air Bilateral breath sound with crackles at the bases S1, S2 Looks euvolemic Abdomen soft Trace edema of legs Data : 10/23/21 03:32 10/23/21 03:32 Micro: Microbiology 10/22/21 21:00 Gram Stain - Final Sputum - Expectorated Sputum A&P Assessment and plan (1) HTN (hypertension): Status: Acute (2) Dyslipidemia: Status: Acute (3) CHF (congestive heart failure): Status: Acute (4) Non-ST elevation MT (NSTEMI): Status: Acute Additional A&P Information NSTEMI Acute exacerbation of systolic congestive heart failure Poor EF Pulmonary hypertension: Severe Ascending aorta 3.9 cm, infra renal abdominal aortic aneurysm 3.9 x 3.6 cm with large amount of mural thrombus Will need angiogram We will touch base with cardiology today Patient symptoms of shortness of breath improved with use of BiPAP and aggressive diuretics will cut back on Bumex 2 mg IV push daily, use of BiPAP at night No active chest pain Patient does have bronchitis, productive sputum, cough, worsening leukocytosis, however afebrile, will keep Levaquin JAMIE related to cardiorenal, dissipating, with further diuresis Patient has eaten breakfast around 8:00, n.p.o. for anticipation of possible angiogram today, Sinus tachycardia, will request venous Dopplers, CTA rule out PE Attestations Medical Necessity Statement*: Continue medical management Time Spent in Patient Care: 16 - 35 minutes Coding Level of Care Code Acute Typesetting Machine Operator/Tender for g Fwd Diagnoses HTN (hypertension) I10 Dyslipidemia E78.5 CHF (congestive heart failure) I50.9 Non-ST elevation MT (NSTEMI) I21.4
--- NOTE | 2021-10-23 13:07 | PM.PN ---
Subjective Subjective: Interval history: Patient feels better. No chest discomfort. He got some sleep last night. -1.2 L since admission Medications: Reviewed: Yes Vitals/I&O/Wt Last Vital Signs Temp 97.7 F 10/23/21 02:29 Pulse 102 H 10/23/21 08:00 Resp 27 H 10/23/21 08:00 BP 130/89 10/23/21 08:00 Pulse Ox 96 10/23/21 08:00 10/22/21 10/23/21 10/23/21 22:59 06:59 14:59 Intake Total 478.75 / 878.125 334.65 / 1212.775 240 / 240 Output Total 1550 / 2360 175 / 2535 950 / 950 Balance -1071.25 / -1481.875 159.65 / -1322.225 -710 / -710 Weight last 48 hrs Weight 177 lb 4.8 oz Weight 183 lb 11.2 oz Weight 183 lb 11.2 oz Weight 185 lb Physical Exam Narrative: EXAM NARRATIVE: GENERAL: Averagely built and averagely nourished in no acute distress HEENT: Pupils equal round reactive to light. No pallor or icterus. NECK: No JVD, No carotid bruit. CARDIOVASCULAR SYSTEM: S1-S2 regular. No S3 or S4 present. No murmur rubs or gallops. RESPIRATORY SYSTEM: Chest clear to auscultation. No wheezes. bilateral rales+ ABDOMEN: Soft, nontender and nondistended. Normal bowel sounds present. EXTREMITIES: No cyanosis No edema. No signs of chronic venous insufficiency. APPRISE COUNSELOR: Patient is alert oriented ?3. Right upper and lower extremity weakness Data : 10/23/21 03:32 10/23/21 03:32 Micro: Microbiology 10/22/21 21:00 Gram Stain - Final Sputum - Expectorated Sputum A&P Assessment and plan (1) Non-ST elevation LA (NSTEMI): Continue aspirin, high intensity Lipitor, metoprolol and Lovenox -Severely decreased LV function with regional wall motion abnormality on echo -Off nitroglycerin drip and BiPaP PRN -Transition to p.o. Imdur. -Plan to start on Brilinta after delineating coronary anatomy. -I will plan for coronary angiogram possibly tomorrow. Case was discussed with Dr. Eden. Status: Acute (2) CHF (congestive heart failure): -S/p Bumex 2 mg IV x1 this morning -Will hold Bumex this afternoon -He has been started on lisinopril and metoprolol tartrate since admission. -transition to metoprolol succinate on discharge Status: Acute (3) HTN (hypertension): Status: Acute (4) Dyslipidemia: Status: Acute Additional A&P Information Coronary disease s/p CABG x3 Bilateral pleural effusion Infrarenal aortic aneurysm JAMIE secondary to renovascular congestion: Improving with diuresis Hypokalemia: Replaced Chronic active smoker Noncompliant History of stroke with residual right-sided weakness Thank you for allowing me to participate in patient's care. Please feel free to call with questions or concerns. Attestations Medical Necessity Statement*: His hospital stay for management of NSTEMI, CHF and uncontrolled hypertension Time Spent in Patient Care: 16 - 35 minutes (>than 50% of time spent in counselling and/or direct pt care on unit). Coding Level of Care Code Acute Lead Atg Developer for Ev De Paz Diagnoses Non-ST elevation LA (NSTEMI) I21.4 CHF (congestive heart failure) I50.9 HTN (hypertension) I10 Dyslipidemia E78.5
[2021-10-23 13:26] LABS: Thyroid Stimulating Hormone 2.53 uIU/mL (0.27-4.20)
[2021-10-23] MEDS: atorvastatin 40 mg Tablet 80 MG PO (19:57)
[2021-10-23] MEDS: ALPRAZolam 0.5 mg Tablet PO (21:56)
[2021-10-24] VITALS (38 sets, daily range): BP systolic 96–124; BP diastolic 56–90; PULSE 73–96; RESP 12–34; TEMP 36.1–37.5; O2SAT 87–98
[2021-10-24] MEDS: enoxaparin 80 mg/0.8 mL Syringe SUBCUT (02:19)
[2021-10-24 04:55] LABS: Basophils % 0.2 %; Eosinophils # 0.3 10^3/uL (0.0-0.8); Eosinophils % 2.1 %; Hemoglobin 14.9 g/dL (11.7-16.6); Lymphocytes # 2.6 10^3/uL (0.8-4.8); Lymphocytes % 19.9 %; Mean Corpuscular HGB Conc 31.7 g/dL (30.0-36.0); Mean Corpuscular Hemoglobin 30.4 pg (28.0-34.0); Mean Corpuscular Volume 95.9 fl (80-94); Mean Platelet Volume 12.4 fL (7.4-10.4); Monocytes # 1.1 10^3/uL (0.2-0.9); Monocytes % 8.6 %; Neutrophils # 8.92 10^3/uL (1.8-7.7); Neutrophils % 68.9 %; Nucleated Red Blood Cells % 0 %; Platelet Count 116 10^3/cmm (130-400); Red Cell Distribution Width 13.3 % (12.1-15.1)
[2021-10-24] MEDS: levoFLOXacin 750 mg Tablet PO (04:55)
[2021-10-24 05:20] LABS: Blood Urea Nitrogen 26 mg/dL (6-20); Calcium 8.5 mg/dL (8.5-10.5); Carbon Dioxide 29 mmol/L (22-29); Chloride 100 mmol/L (98-107); Glomerular Filtration Rate 62.9 mL/min (90-130); Glucose 96 mg/dL (65-115); Osmolality Calculated 289 mOsm/kg (285-295); Sodium 137 mmol/L (136-145)
[2021-10-24 05:24] LABS: Procalcitonin 0.12 ng/mL (0-0.5)
[2021-10-24 06:01] LABS: Anion Gap 12.5 (5-19); Potassium 4.5 mmol/L (3.5-5.1)
--- NOTE | 2021-10-24 08:19 | XACV_ITS ---
Exam Room: [facility] Ht: 183 cm Wt: 79 kg BSA: 2.01 m2 Gender: Male : 1965 Any Known Allergies: No known allergies Exam Priority: Routine Indication(s): - Non-ST elevation [place] Procedure(s): Procedure Description: Diagnostic procedure Procedure Description: Venous Graft Catheterization Procedure Description: LOZANO Graft Catheterization Procedure Description: Coronary Angiography Diagnostic Cath Status: Urgent Diagnostic Findings * SVG to RCA: Occluded. SVG to OM: Occluded LOZANO to LAD is patent. It gives collaterals to RCA territory also.. * INDICATION: NSTEMI/ Heart failure with reduced ejection fraction. * Left Anterior Descending has no disease. * Left Main: total occlusion, DALTON: 0 flow. * Proximal Right Coronary Artery: total occlusion, [place]: 0 flow. * Coronary angiography shows right dominance. Conclusions 1. Totally occluded RCA and left main artery. 2. Only patent graft is LOZANO to LAD which is of good quality 3. and is also supplying collaterals to the RCA territory. 4. . 5. Patient has prior CABG. Recommendations * Patient's only patent graft is LOZANO to LAD is of good quality. Also supplying RCA territory through collaterals. * Given the very limited coronary artery blood supply at to the heart, chances of functional recovery are low. Patient will benefit from ICD placement. Dr. Stephens will be consulted. * Guideline directed medical therapy for heart failure. * Transfer back to [facility]. Interventional RX Recommendation: medical therapy and/or counseling Diagnostic RX Recommendation: medical therapy and/or counseling Clinical Evaluation EBL: 5mL-10mL Procedural Details Procedure Consent Obtained. Current Diagnosis : NSTEMI. Admit Source: In Patient. Pre-Procedure Time Out. Identified patient by full name and date of as verbalized by the patient/guarantor. Does the consent match the physician's order: No. Accurate & Complete Informed Consent: Yes. Inpatient/Outpatient History & Physical on Chart: Yes. If H&P is completed, is and addenduem needed: No; If yes, is the addendum complete: N/A. Visualize and Verify Site with Patient/Guarantor: N/A. Relevant Radiology Images available: N/A. The risks, benefits, and alternatives of sedation and/or procedure were discussed by physician. The patient agrees to continue. Procedure started. [facility] Clinical Fraility Score: 3: Managing Well. Joinery Patternmaker Indications: NONSTEMI. Chest Pain Symptom Assessment: Atypical Angina. Cardiovascular Instability: No. Stable. Correct patient, site and procedure confirmed by cath team. Current diagnosis: NSTEMI. PERRLA. Strong, equal hand eddy current inspector bilaterally. Lungs clear x 5 lobes. IV Site on Arrival: 20 gauge in the left forearm. IV Fluids: 0.9% NaCl at KVO. 0 mL infused prior to quality lab technician. Pre Procedural Pulses: bilateral radial was 3+. Pre Procedural Pulses: bilateral posterior tibial was Doppled. Pre Procedural Pulses: bilateral posterior tibial was Doppled. Oxygen started at 2liters/min via nasal canula. bilateral groins was prepped with chloroprep then draped in the usual sterile fashion. Physician notified. Baseline sample Acquired. HR: 94 BPM. Physician arrived. Equipment: 6F - Femoral. Cardiac Cath Pack. ACIST Manifold Kit Model BT 2000. Heparinized Saline (2 units/mL), 1000 mL bag. Kit, Micropuncture. Physician scrubbed in. Immediate Pre-Procedure Time Out. Correct Patient: Yes; Correct Procedure: Yes; Correct Site: Yes; Correct Patient Position: Yes; Correct Supplies: Yes; Dried Flammable Prep: Yes; Blood Products Available: N/A;. Lidocaine 1% infiltrated to the right groin. Arterial access obtained with micropuncture set. Microdilator inserted. Hand injection performed. likely occluded ostial common iliac from the right side. Dilator out. Manual pressure held per MD until hemostasis achieved. Lidocaine 1% infiltrated to the left groin. Arterial access obtained with micropuncture set. A 5 togolese JL4 catheter in over wire. Multiple views taken of left coronary artery. Catheter removed over the exchange wire. A 5 togolese JR4 catheter in over wire. Multiple views taken of right coronary artery. Redirected catheter for grafts. SVG to RCA occluded. SVG to OM occluded. Catheter redirected over the wire to the LOZANO. LOZANO to LAD visualized. Catheter removed over the exchange wire. Physician review of films. Physician scrubbed out. Physician updated family. A Suture was successful obtaining hemostatsis at the Left Femoral artery insertion site. Sheath(s) sutured into position with 2-0 silk and sterile 4x4's and Op-site applied over the site. No oozing or signs and symptoms of hematoma noted. Arterial sheath flushed and connected to tranducer and pressure bag with heparinized saline. Post Procedure: Pulses reassessed and unchanged. PERRLA. Strong, equal hand eddy current inspector bilaterally. No VTE prophylaxis required. Medication's Wasted: Lidocaine 1% = 2 mL. Medication's Wasted: Heparin = 4000 units. Total IV fluids: 75 mL. Fluoro: 8:03. Contrast type used: Omnipaque 300 mg/mL, 150 mL bottle. [id number]. Post-op diagnosis: Severe multivessel coronary artery disease; Occluded OM AND RCA SVG'S; PATENT LOZANO. Complications: None. Estimated blood loss: 5mL-10mL. Responsiveness - Normal response to verbal stimuli; alert and oriented, PERRLA. Airway - Unaffected, no intervention required; spontaneous ventilation. Circulation: W/N/L, pulses unchanged. Nausea/Vomiting: No. Procedure completed. Patient transferred by bed to 1st floor. Vital chart was stopped. Access Site Site: Left Femoral artery Sheath Size: 6 Fr Hemostasis Method: Suture Hemostasis Success: Successful Procedure Medications Start: 8:59 AM Stop: 8:59 AM Medication: Versed Amount: 1 mg Route: I.V. Start: 8:59 AM Stop: 8:59 AM Medication: Fentanyl Amount: 50 mcg Route: I.V. Start: 9:05 AM Stop: 9:05 AM Medication: Versed Amount: 1 mg Route: I.V. Start: 9:10 AM Stop: 9:10 AM Medication: Versed Amount: 1 mg Route: I.V. Start: 9:20 AM Stop: 9:20 AM Medication: Versed Amount: 1 mg Route: I.V. Start: 9:20 AM Stop: 9:20 AM Medication: Fentanyl Amount: 50 mcg Route: I.V. Start: 9:29 AM Stop: 9:29 AM Medication: Versed Amount: 1 mg Route: I.V. I, the attending physician, have reviewed and verified all procedure medications. Yes, all medications given per verbal order History/Risk Factors Hypertension: Yes Dyslipidemia: Yes Peripheral Arterial Disease (PAD): No Myocardial Infarction (AL): Yes Obesity: No Renal Disease: No Tobacco Use: Current/Recent(w/in 1 year) Prior Interventions PCI: No CABG: Yes Valve Surgery: No Report Signatures Finalized by Rohan Eden MD on 11/10/2021 07:21 AM
--- NOTE | 2021-10-24 08:57 | W.PM.OPSUD ---
Surgery/Procedure H&P Update DATE OF PROCEDURE: October 24, 2021 DATE H&P PERFORMED: 10/22/21 H&P UPDATE INFORMATION: I have reviewed H&P completed within last 30 days, I have examined patient prior to procedure and No changes to prior documentation PREOP DIAGNOSIS: NSTEMI/ New onset heart failure PRIMARY INDICATION FOR PROCEDURE: NSTEMI/ New onset heart failure PLANNED PROCEDURE: Operation Date: 10/24/21 09:00 Proposed Procedures p Cardiac Catheterization(Left) - Rohan Eden M.D Possible percutaneous coronary intervention PATIENT REASSESSED PRIOR TO SEDATION, WITH NO CHANGE NOTED: Yes PHYSICAL EXAM: alert, oriented x 3 and clear to auscultation bilaterally AIRWAY EVAL/ANESTHESIA PLAN: ASA III, Monitored Anesthesia, Local Anesthesia, Risks, benefits & alternatives of sedation and/or procedure discussed and Patient agrees to continue as planned
--- NOTE | 2021-10-24 09:00 | PC.NURSE ---
Pt left for geophysical laboratory director at approximately 0850.
--- NOTE | 2021-10-24 10:10 | PC.NURSE ---
Pt returned from industrial laborer to room 106 at approximately 1000. Pt has sheath to left groin connected to pressure bag. Pt had no c/o pain or discomfort at the present time. Call light in reach.
[2021-10-24] MEDS: bumetanide 1 mg Tablet 2 MG PO (10:48)
[2021-10-24] MEDS: isosorbide mononitrate ER 30 mg Tablet PO (10:49)
[2021-10-24] MEDS: metoprolol succinate ER (24 HR) 100 mg Tablet PO (10:49)
[2021-10-24] MEDS: amlodipine 5 mg Tablet PO (10:49)
[2021-10-24] MEDS: aspirin 325 mg Tablet PO (10:49)
[2021-10-24] MEDS: potassium chloride ER 20 mEq Tablet PO (10:50)
[2021-10-24] MEDS: pantoprazole DR 40 mg Tablet PO (10:52)
--- NOTE | 2021-10-24 12:33 | PM.PN ---
Subjective Subjective: Interval history: This morning, awaiting angiogram, n.p.o., patient is feeling much better, no active shortness of breath or chest pain denies orthopnea, PND thinks diuresis and BiPAP has really helped to improve his symptoms As per cardiology, venous grafts are occluded, LOZANO to LAD patent, coronary vessels not amenable to angioplasty, will touch base with cardiothoracic for AICD placement for primary prevention, Family at the bedside Vitals/I&O/Wt Last Vital Signs Temp 97.0 F L 10/24/21 07:59 Pulse 94 10/24/21 07:59 Resp 15 10/24/21 07:59 BP 119/86 10/24/21 07:59 Pulse Ox 93 10/24/21 07:59 10/23/21 10/24/21 10/24/21 22:59 06:59 14:59 Intake Total 200 / 440 300 / 740 Output Total 950 / 1900 400 / 2300 Balance -750 / -1460 -100 / -1560 Weight last 48 hrs Weight 79.651 kg Weight 80.422 kg Physical Exam Narrative: EXAM NARRATIVE: Patient does look euvolemic today, sitting at the bedside On room air Crackles noted at the base of the lungs otherwise no acute respiratory distress Clinically does not look fluid overloaded S1, S2 Abdomen is soft Lower extremity no edema No audible stridor or wheezing Appropriate mood and affect EOMI, PERRLA Data : 10/24/21 04:37 10/24/21 04:37 Micro: Microbiology 10/22/21 21:00 Gram Stain - Final Sputum - Expectorated Sputum Sputum Culture - Preliminary Gram Negative Rods A&P Assessment and plan (1) HTN (hypertension): Status: Acute (2) Dyslipidemia: Status: Acute (3) CHF (congestive heart failure): Status: Acute (4) Non-ST elevation [place] (NSTEMI): Status: Acute Additional A&P Information NSTEMI LOZANO to LAD patent, angiogram done on 10/24 Venous grafts are occluded, coronary vessels not amiable to intervention Optimization of medical therapy Significant troponin leak might benefit from long-term dual antiplatelet therapy AICD placement for primary prevention, will discuss with cardiothoracic surgeon Acute CHF exacerbation Systolic congestive heart failure Candidate of AICD Did well with BiPAP and aggressive diuresis patient looks euvolemic today I would reduce Bumex dose to 1 mg daily Finished more than 48 hours on therapeutic dose of Lovenox Switch to DVT prophylactic regimen now No active shortness of breath or chest pain Will do home O2 evaluation He will stay until Tuesday for AICD evaluation Cardiac diet Counseled on smoking cessation Full code Attestations Medical Necessity Statement*: He will stay until Tuesday for AICD placement Time Spent in Patient Care: less than 15 minutes Coding Level of Care Code Acute Grocery Clerk Marking for Chg Fwd Diagnoses HTN (hypertension) I10 Dyslipidemia E78.5 CHF (congestive heart failure) I50.9 Non-ST elevation [place] (NSTEMI) I21.4
--- NOTE | 2021-10-24 12:37 | P.PN_ITS ---
Subjective Subjective: Interval history: Patient underwent coronary angiogram today that showed only patent vessel was LOZANO to LAD. His left main is occluded. RCA is proximally is COMMERCIAL ESCROW ASSISTANT. SVG to RCA and SVG to OM are occluded. Vitals/I&O/Wt Last Vital Signs Temp 97.0 F L 10/24/21 07:59 Pulse 94 10/24/21 07:59 Resp 15 10/24/21 07:59 BP 119/86 10/24/21 07:59 Pulse Ox 93 10/24/21 07:59 10/23/21 10/24/21 10/24/21 22:59 06:59 14:59 Intake Total 200 / 440 300 / 740 Output Total 950 / 1900 400 / 2300 Balance -750 / -1460 -100 / -1560 Weight last 48 hrs Weight 175 lb 9.6 oz Weight 177 lb 4.8 oz Physical Exam Narrative: EXAM NARRATIVE: GENERAL: Patient is alert, awake and oriented x3. [] NECK: No jugular vein distension. [] HEENT: No cyanosis. No icterus. No pallor. [] HEART: Regular S1 and S2. No murmur, rub or gallop. [] LUNGS: Has minimal crackles bilaterally. ABDOMEN: Soft, nontender and nondistended. Positive bowel sounds. No guarding, rebound or tenderness. [] CENTRAL NERVOUS SYSTEM: Grossly nonfocal. [] EXTREMITIES: Lower extremities with 1+ edema bilaterally. Pulses palpable in the lower extremities, both dorsalis pedis and posterior tibial. [] Data : 10/25/21 05:18 10/25/21 05:18 Micro: Microbiology 10/22/21 21:00 Gram Stain - Final Sputum - Expectorated Sputum Sputum Culture - Preliminary Gram Negative Rods A&P Assessment and plan (1) Non-ST elevation [place] (NSTEMI): Patient's only patent vessel on coronary angiogram was LOZANO to LAD. It is also giving collaterals to the PDA. SVG to OM and SVG to RCA are occluded. [place] vessels are proximally occluded. Patient does not have chances of recovery of cardiac function given only blood supply to the heart is through LOZANO. He will need placement of ICD. Will consult Dr. Stephens on Tuesday for that. Monitor kidney function. Aspirin and Plavix. Can stop anticoagulation. Status: Acute (2) CHF (congestive heart failure): Continue p.o. Bumex. Watch kidney function. Lisinopril and metoprolol. Status: Acute (3) HTN (hypertension): Status: Acute (4) Dyslipidemia: Status: Acute Additional A&P Information Coronary disease s/p CABG x3 Bilateral pleural effusion Infrarenal aortic aneurysm JAMIE secondary to renovascular congestion: Improving with diuresis Hypokalemia: Replaced Chronic active smoker Noncompliant History of stroke with residual right-sided weakness Thank you for allowing me to participate in patient's care. Please feel free to call with questions or concerns. Attestations Medical Necessity Statement*: Care expected to cross 2 midnights. Coding Level of Care Code Acute Central Supply Supervisor for Ev De Paz Diagnoses Non-ST elevation [place] (NSTEMI) I21.4 CHF (congestive heart failure) I50.9 HTN (hypertension) I10 Dyslipidemia E78.5
--- NOTE | 2021-10-24 14:20 | PC.NURSE ---
Cardiac sheath pulled from left groin at approximately 1350. Pressure was held for 20 min. Pt tolerated well no swelling hematoma or bleeding noted. Drsg applied Drsg dry and intact. Pt had no c/o pain or discomfort at the present time. No needs voiced. Call light in reach. Will cont to monitor.
--- NOTE | 2021-10-24 19:03 | PC.NURSE ---
Received report from DELIA Srivastava. Patient is s/p [facility] with left femoral access. Dressing to site remain c,d,i with no s/s of bleeding or hematoma formation observed. Instructed patient on when he could get up out of bed. He verbalized complete understanding requesting a shower when possible. Denies pain presently. No distress observed. Will continue to monitor.
[2021-10-24] MEDS: ALPRAZolam 0.5 mg Tablet PO (20:34)
[2021-10-24] MEDS: enoxaparin 40 mg/0.4 mL Syringe SUBCUT (20:34)
[2021-10-24] MEDS: atorvastatin 40 mg Tablet 80 MG PO (20:34)
--- NOTE | 2021-10-24 20:51 | PC.NURSE ---
Patient up to shower s/p C. Dressing to left groin remains c,d,i with no s/s of bleeding or hematoma formation obsersved. Patient denies pain to site. Instructed patient on site care and restrictions. Patient verbalized complete understanding. Complete linen change performed.
[2021-10-25] VITALS (9 sets, daily range): BP systolic 96–125; BP diastolic 63–89; PULSE 68–81; RESP 13–19; TEMP 36.6–37.1; O2SAT 95–98
[2021-10-25] MEDS: levoFLOXacin 750 mg Tablet PO (05:20)
[2021-10-25 05:52] LABS: Basophils % 0.1 %; Eosinophils # 0.4 10^3/uL (0.0-0.8); Eosinophils % 2.8 %; Hematocrit 42.5 % (42.0-52.0); Lymphocytes % 15.7 %; Mean Corpuscular HGB Conc 32.9 g/dL (30.0-36.0); Mean Corpuscular Hemoglobin 31.3 pg (28.0-34.0); Mean Corpuscular Volume 94.9 fl (80-94); Mean Platelet Volume 12.6 fL (7.4-10.4); Monocytes # 1.2 10^3/uL (0.2-0.9); Monocytes % 9.7 %; Neutrophils # 8.99 10^3/uL (1.8-7.7); Neutrophils % 71.1 %; Nucleated Red Blood Cells % 0 %; Platelet Count 159 10^3/cmm (130-400); Red Blood Count 4.48 10^6/uL (4.1-5.3); Red Cell Distribution Width 13.2 % (12.1-15.1); White Blood Count 12.6 10^3/uL (4.0-10.0)
[2021-10-25 06:18] LABS: Anion Gap 16.1 (5-19); Blood Urea Nitrogen 23 mg/dL (6-20); Calcium 8.3 mg/dL (8.5-10.5); Carbon Dioxide 23 mmol/L (22-29); Chloride 102 mmol/L (98-107); Glomerular Filtration Rate 62.9 mL/min (90-130); Glucose 126 mg/dL (65-115); Osmolality Calculated 289 mOsm/kg (285-295); Potassium 4.1 mmol/L (3.5-5.1); Sodium 137 mmol/L (136-145)
--- NOTE | 2021-10-25 07:58 | PC.SOCIAL ---
Pg 2 IMM Explained to pt Pg 2 IMM. No questions voiced. Provided pt a copy. Initialed, dated, & timed a copy & placed in chart.
[2021-10-25] MEDS: aspirin 325 mg Tablet PO (09:29)
[2021-10-25] MEDS: potassium chloride ER 20 mEq Tablet PO (09:29)
[2021-10-25] MEDS: metoprolol succinate ER (24 HR) 100 mg Tablet PO (09:29)
[2021-10-25] MEDS: isosorbide mononitrate ER 30 mg Tablet PO (09:29)
[2021-10-25] MEDS: bumetanide 1 mg Tablet PO (09:29)
[2021-10-25] MEDS: pantoprazole DR 40 mg Tablet PO (09:29)
[2021-10-25] MEDS: lisinopril 10 mg Tablet PO (09:29)
[2021-10-25] MEDS: amlodipine 5 mg Tablet PO (09:29)
--- NOTE | 2021-10-25 11:29 | PM.PN ---
Subjective Subjective: Interval history: Patient is feeling well. Creatinine is stable. Vitals/I&O/Wt Last Vital Signs Temp 97.8 F 10/25/21 09:25 Pulse 81 10/25/21 09:25 Resp 19 H 10/25/21 09:25 BP 119/81 10/25/21 09:25 Pulse Ox 95 10/25/21 09:25 10/24/21 10/25/21 10/25/21 22:59 06:59 14:59 Intake Total 810 / 1160 240 / 1400 Output Total 1550 / 1550 400 / 1950 Balance -740 / -390 -160 / -550 Weight last 48 hrs Weight 173 lb 6.4 oz Weight 175 lb 9.6 oz Physical Exam Narrative: EXAM NARRATIVE: GENERAL: Patient is alert, awake and oriented x3. [] NECK: No jugular vein distension. [] HEENT: No cyanosis. No icterus. No pallor. [] HEART: Regular S1 and S2. No murmur, rub or gallop. [] LUNGS: Has minimal crackles bilaterally. ABDOMEN: Soft, nontender and nondistended. Positive bowel sounds. No guarding, rebound or tenderness. [] CENTRAL NERVOUS SYSTEM: Grossly nonfocal. [] EXTREMITIES: Lower extremities with 1+ edema bilaterally. Pulses palpable in the lower extremities, both dorsalis pedis and posterior tibial. [] Data : 10/26/21 04:59 10/26/21 04:59 Micro: Microbiology 10/22/21 21:00 Gram Stain - Final Sputum - Expectorated Sputum Sputum Culture - Final Escherichia coli A&P Assessment and plan (1) Non-ST elevation [place] (NSTEMI): Patient's only patent vessel on coronary angiogram was LOZANO to LAD. It is also giving collaterals to the PDA. SVG to OM and SVG to RCA are occluded. [place] vessels are proximally occluded. Patient does not have chances of recovery of cardiac function given only blood supply to the heart is through LOZANO. He will need placement of ICD. We will discuss with Dr. Stephens to place ICD while he is in the hospital. Monitor kidney function. Aspirin and Plavix. Can stop anticoagulation. Status: Acute (2) CHF (congestive heart failure): Continue p.o. Bumex. He appears close to being euvolemic. Watch kidney function. Lisinopril and metoprolol. Status: Acute (3) HTN (hypertension): Status: Acute (4) Dyslipidemia: Status: Acute Additional A&P Information Coronary disease s/p CABG x3 Bilateral pleural effusion Infrarenal aortic aneurysm JAMIE secondary to renovascular congestion: Improving with diuresis Hypokalemia: Replaced Chronic active smoker Noncompliant History of stroke with residual right-sided weakness Thank you for allowing me to participate in patient's care. Please feel free to call with questions or concerns. Attestations Medical Necessity Statement*: Care expected to cross 2 midnights. Coding Level of Care Code Acute Shotgun Shell Assembly Machine Operator for Ev De Paz Diagnoses Non-ST elevation [place] (NSTEMI) I21.4 CHF (congestive heart failure) I50.9 HTN (hypertension) I10 Dyslipidemia E78.5
--- NOTE | 2021-10-25 11:31 | P.PN_ITS ---
Subjective Subjective: Interval history: Telemetry does show signs of nonsustained V. tach Patient hemodynamically stable No active chest pain or shortness of breath He is very happy with his progress he is euvolemic Decreased his Bumex dose to 1 mg daily He is not requiring BiPAP Leukocytosis trending down Afebrile Negative fluid balance Status post coronary angiogram, patent LAD graft, LOZANO to LAD, venous grafts are occluded Will need AICD Vitals/I&O/Wt Last Vital Signs Temp 97.8 F 10/25/21 09:25 Pulse 81 10/25/21 09:25 Resp 19 H 10/25/21 09:25 BP 119/81 10/25/21 09:25 Pulse Ox 95 10/25/21 09:25 10/24/21 10/25/21 10/25/21 22:59 06:59 14:59 Intake Total 810 / 1160 240 / 1400 Output Total 1550 / 1550 400 / 1950 Balance -740 / -390 -160 / -550 Weight last 48 hrs Weight 78.653 kg Weight 79.651 kg Physical Exam Narrative: EXAM NARRATIVE: Patient sitting at the bedside comfortable doing well on room air Looks euvolemic He has right arm weakness which is chronic EOMI, PERRLA Nonfocal neuro exam Mild crackles at the base of the lungs No acute respiratory distress S1, S2 hemoDynamically stable Appropriate mood and affect Data : 10/25/21 05:18 10/25/21 05:18 Micro: Microbiology 10/22/21 21:00 Gram Stain - Final Sputum - Expectorated Sputum Sputum Culture - Final Escherichia coli A&P Assessment and plan (1) HTN (hypertension): Status: Acute (2) Dyslipidemia: Status: Acute (3) CHF (congestive heart failure): Status: Acute (4) Non-ST elevation [place] (NSTEMI): Status: Acute Additional A&P Information Acute congestive heart failure exacerbation Reduced action fraction, EF 25% No intervention at the time of coronary angiogram, LOZANO to LAD patent, venous g raft occluded, Will need AICD evaluation before discharge Keep him n.p.o. after midnight Reduced dose of Bumex to 1 mg daily NSTEMI: Status post coronary angiogram: Kindly see cardiology note for further details no active shortness of breath or chest pain Acute hypoxia: Resolved with diuresis: No active hypoxia he is doing well on room air will need home O2 evaluation at the time of discharge This was secondary to CHF exacerbation JAMIE resolved: Cardiorenal: Improved with diuresis, lisinopril resumed which was held secondary to worsening creatinine initially Nonsustained V. tach on telemetry: Potassium is 4, check magnesium level hemodynamically stable, patient is symptom-free, currently on metoprolol succinate 100 mg daily Hypertensive emergency: He also required nitroglycerin drip at the time of admission, blood pressure improved with use of oral antihypertensive regimen Cardiac diet N.p.o. after midnight DVT prophylaxis: Hold in anticipation of AICD placement Full code Attestations Medical Necessity Statement*: Anticipating AICD placement Time Spent in Patient Care: less than 15 minutes Coding Level of Care Code Acute Hardware Supplies Sales Representative for [facility] Zandra Diagnoses HTN (hypertension) I10 Dyslipidemia E78.5 CHF (congestive heart failure) I50.9 Non-ST elevation [place] (NSTEMI) I21.4
--- NOTE | 2021-10-25 20:00 | PC.NURSE ---
Shift Note Frequent safety and comfort rounds continue. Orders and/or nursing care completed as indicated. Patient monitored for response to intervention and treatment(s). Education provided includes possible AICD eval and post AICD wound care and activity restrictions, fluid restriction. Patient and/or sales representative uniforms verbalizes understanding. Will continue to monitor.
--- NOTE | 2021-10-25 20:46 | PC.NURSE ---
Received report from DELIA Calderon. Patient resting in bed watching TV. Denies pain or other needs. Discussed plan for AICD placement tomorrow. Patient verbalized complete understanding stating, we are waiting on the rep for the device. No distress observed. Will continue to monitor.
[2021-10-25] MEDS: ALPRAZolam 0.5 mg Tablet PO (20:49)
[2021-10-25] MEDS: atorvastatin 40 mg Tablet 80 MG PO (20:49)
[2021-10-26] VITALS (10 sets, daily range): BP systolic 92–118; BP diastolic 62–87; PULSE 69–78; RESP 16–21; TEMP 36.6–36.8; O2SAT 92–98
[2021-10-26] MEDS: levoFLOXacin 750 mg Tablet PO (04:49)
--- NOTE | 2021-10-26 04:54 | PC.NURSE ---
Shift Note Frequent safety and comfort rounds continue. Orders and/or nursing care completed as indicated. Patient monitored for response to intervention and treatment(s). Education provided includes AICD placement. Patient verbalized complete understanding. Noted patient to have a 9 beat run of vtach. Patient denies pain or SOB in correlation with this. Reports having slept well. Denies any pain or discomforts this morning. No distress observed. Will continue to monitor.
[2021-10-26 06:09] LABS: Basophils % 0.1 %; Eosinophils # 0.6 10^3/uL (0.0-0.8); Eosinophils % 4.1 %; Hemoglobin 14.3 g/dL (11.7-16.6); Lymphocytes % 14.7 %; Mean Corpuscular HGB Conc 32.5 g/dL (30.0-36.0); Mean Corpuscular Hemoglobin 31.1 pg (28.0-34.0); Mean Corpuscular Volume 95.7 fl (80-94); Monocytes # 1.3 10^3/uL (0.2-0.9); Monocytes % 9.6 %; Neutrophils # 9.81 10^3/uL (1.8-7.7); Neutrophils % 71.1 %; Nucleated Red Blood Cells % 0 %; Platelet Count 143 10^3/cmm (130-400); Red Cell Distribution Width 13.1 % (12.1-15.1); White Blood Count 13.8 10^3/uL (4.0-10.0)
[2021-10-26 06:34] LABS: Anion Gap 18.3 (5-19); Blood Urea Nitrogen 19 mg/dL (6-20); Calcium 8.3 mg/dL (8.5-10.5); Carbon Dioxide 20 mmol/L (22-29); Chloride 103 mmol/L (98-107); Glomerular Filtration Rate 77.6 mL/min (90-130); Glucose 97 mg/dL (65-115); Osmolality Calculated 286 mOsm/kg (285-295); Potassium 4.3 mmol/L (3.5-5.1); Sodium 137 mmol/L (136-145)
[2021-10-26] MEDS: lisinopril 10 mg Tablet PO (08:47)
[2021-10-26] MEDS: bumetanide 1 mg Tablet PO (08:47)
[2021-10-26] MEDS: potassium chloride ER 20 mEq Tablet PO (08:47)
[2021-10-26] MEDS: metoprolol succinate ER (24 HR) 100 mg Tablet PO (08:47)
[2021-10-26] MEDS: isosorbide mononitrate ER 30 mg Tablet PO (08:47)
[2021-10-26] MEDS: amlodipine 5 mg Tablet PO (08:48)
[2021-10-26] MEDS: pantoprazole DR 40 mg Tablet PO (08:48)
--- NOTE | 2021-10-26 09:12 | P.PN_ITS ---
Subjective Subjective: Interval history: Seen this morning. Patient states he feels well and has not had anything to eat overnight. He is waiting to see the digital production artist and for his AICD placement today. Vitals/I&O/Wt Last Vital Signs Temp 98.0 F 10/26/21 08:53 Pulse 70 10/26/21 09:04 Resp 18 10/26/21 09:04 BP 108/87 10/26/21 08:53 Pulse Ox 98 10/26/21 09:04 10/25/21 10/26/21 10/26/21 22:59 06:59 14:59 Intake Total 740 / 1212 0 / 1212 50 / 50 Output Total 300 / 1500 300 / 1800 1150 / 1150 Balance 440 / -288 -300 / -588 -1100 / -1100 Weight last 48 hrs Weight 78.381 kg Weight 78.653 kg Physical Exam Narrative: EXAM NARRATIVE: General: Alert oriented x3, patient seen laying in bed appearing very comfortable, appears euvolemic, HEENT: Normocephalic, atraumatic, EOMI, breathing comfortably, normal respiratory effort. Cardio: normal S1-S2, no gross murmurs, Respiratory: Lungs mainly clear to auscultation with very minimal crackles at left base. GI: Abdomen soft, nontender, Behavior: Appropriate and cooperative Extremities: no edema, no cyanosis Data : 10/26/21 04:59 10/26/21 04:59 Micro: Microbiology 10/22/21 21:00 Gram Stain - Final Sputum - Expectorated Sputum Sputum Culture - Final Escherichia coli A&P Assessment and plan (1) HTN (hypertension): Status: Acute (2) Dyslipidemia: Status: Acute (3) CHF (congestive heart failure): Status: Acute (4) Non-ST elevation ID (NSTEMI): Status: Acute Additional A&P Information #Acute congestive heart failure exacerbation with acute hypoxia (hypoxia resolved with diuretics) #NSTEMI s/p angio with no interventions #JAMIE 2/2 cardiorenal syndrome - resolved Reduced action fraction, EF 25% No intervention at the time of coronary angiogram, LOZANO to LAD patent, venous graft occluded, He is awaiting AICD placement today. He has been n.p.o. since midnight. Dr. August will see the patient today and further plan will be decided. I will continue him on Bumex 1 mg daily for now. Will order home O2 eval at discharge Will await further recs from cardiology Nonsustained V. tach on telemetry 10/25: Replete electrolytes, continue toprol 100. #Hypertensive emergency - resolved: He also required nitroglycerin drip at the time of admission, blood pressure improved with use of oral antihypertensive regimen Cardiac diet after AICD placement. DVT prophylaxis: Hold in anticipation of AICD placement Full code Attestations Medical Necessity Statement*: > 24 hour stay Coding Level of Care Code Acute Personnel Coordinator for Chg Fwd Diagnoses HTN (hypertension) I10 Dyslipidemia E78.5 CHF (congestive heart failure) I50.9 Non-ST elevation ID (NSTEMI) I21.4
--- NOTE | 2021-10-26 10:10 | P.PN_ITS ---
Subjective Subjective: Interval history: patient denies any complaints. runs of NSVT noted on telemetry. Medications: Reviewed: Yes Vitals/I&O/Wt Last Vital Signs Temp 98.0 F 10/26/21 08:53 Pulse 70 10/26/21 09:04 Resp 18 10/26/21 09:04 BP 108/87 10/26/21 08:53 Pulse Ox 98 10/26/21 09:04 10/25/21 10/26/21 10/26/21 22:59 06:59 14:59 Intake Total 740 / 1212 0 / 1212 50 / 50 Output Total 300 / 1500 300 / 1800 350 / 350 Balance 440 / -288 -300 / -588 -300 / -300 Weight last 48 hrs Weight 172 lb 12.8 oz Weight 173 lb 6.4 oz Physical Exam Narrative: EXAM NARRATIVE: EXAM NARRATIVE: GENERAL: Averagely built and averagely nourished in no acute distress HEENT: Pupils equal round reactive to light. No pallor or icterus. NECK: No JVD, No carotid bruit. CARDIOVASCULAR SYSTEM: S1-S2 regular. No S3 or S4 present. No murmur rubs or gallops. RESPIRATORY SYSTEM: Chest clear to auscultation. No wheezes. No rales ABDOMEN: Soft, nontender and nondistended. Normal bowel sounds present. EXTREMITIES: No cyanosis No edema. No signs of chronic venous insufficiency. SAP SECURITY CONSULTANT: Patient is alert oriented ?3. Right upper and lower extremity weakness Data : 10/26/21 04:59 10/26/21 04:59 Micro: Microbiology 10/22/21 21:00 Gram Stain - Final Sputum - Expectorated Sputum Sputum Culture - Final Escherichia coli A&P Assessment and plan (1) Non-ST elevation [place] (NSTEMI): Patient's only patent vessel on coronary angiogram was LOZANO to LAD. It is also giving collaterals to the PDA. SVG to OM and SVG to RCA are occluded. [place] vessels are proximally occluded. Patient's chances of recovery of cardiac function given only blood supply to the heart is through LOZANO is unlikely. -He will need placement of ICD. He is also having several runs of NSVT. -I discussed with Dr. Stephens about ICD placement while he is in the hospital. As he has right sided weakness, he will need right sided ICD placement. There was s ome concern about insurance coverage as we do not have any prior echo (no medical care in last several years). However, the severely decreased LV function with aneurysmal appearing inferior wall and severe hypokinesis in LAD territory does not appear to be new and is unlikely to improve with medical management. -After prolonged discussion with patient, UR and Dr. Stephens; decision was made to formally consult Dr. Stephens for ICD placement tomorrow. -continue ASA, statin. Status: Acute (2) CHF (congestive heart failure): HFrEF (LVEF=25%) Continue p.o. Bumex. He appears close to being euvolemic. - kidney function has normalized. -on Lisinopril and metoprolol. Status: Acute (3) HTN (hypertension): will D/C imdur and uptitrate lisinopril, f/u on BMP Status: Acute (4) Dyslipidemia: Status: Acute Additional A&P Information Coronary disease s/p CABG x3 leukocytosis: on abx for possible PNA Frequent NSVT : Keep K>4 and Mg>2; continue beta jaye Bilateral pleural effusion Infrarenal aortic aneurysm JAMIE secondary to renovascular congestion: resolved with diuresis Hypokalemia: Replaced Chronic active smoker Noncompliant History of stroke with residual right-sided weakness Thank you for allowing me to participate in patient's care. Please feel free to call with questions or concerns. Attestations Medical Necessity Statement*: Needs hospital stay for med titration Time Spent in Patient Care: 16 - 35 minutes (>than 50% of time spent in counselling and/or direct pt care on unit) . Coding Level of Care Code Acute Manager Business Information for [employer] Diagnoses Non-ST elevation [place] (NSTEMI) I21.4 CHF (congestive heart failure) I50.9 HTN (hypertension) I10 Dyslipidemia E78.5
--- NOTE | 2021-10-26 13:44 | XR_ITS ---
WS: [id number] Exam: XR chest 1V portable [id number] Date/Time of Exam: 10/26/2021 2:07 PM Reason For Exam: CHF, pleural effusion Comparison 10/22/2021. Lungs are fully expanded and clear. Heart size is top limits normal. Signs of previous CABG surgery. No pleural effusions. Monitoring leads superimpose the chest. Bony structures are intact. XR/XR chest 1V portable [id number] IMPRESSION: 1. No acute cardiopulmonary finding.
--- NOTE | 2021-10-26 14:16 | P.CONIM_ITS ---
Providers/Reason For Consult Consulting Physician/Specialty*: Dr. Stephens/cardiothoracic surgery Reason for Consult*: AICD implantation Requesting Physician: Dr. August Attending Physician: Liliam Rocha MD History of Present Illness History of Present Illness BLADIMIR CARRASCO is a 55 year old male who was admitted upon presentation to the emergency department on October 21, presenting with chest discomfort episode resolved. Initial troponin of 65 increased to 149 at 2 hours and at 393 of 6 hours. He was treated per ACS protocol. He was also evaluated by Dr. August from our cardiology service in consultation. Mr. Carrasco has a known history for coronary artery disease status post CABG x3 in 2004 with previous stroke with residual right-sided weakness in early 1999. He has known cardiomyopathy. After presentation, he responded well to acute management which also included diuresis with Lasix. EKG revealed sinus tachycardia with left atrial enlargement and interventricular conduction delay and inferior lateral ST depression. Fortunately, he continues to smoke. Left heart catheterization was performed on October 24 revealing patent LOZANO to LAD graft. RCA is occluded proximally and appears to be chronic. Saphenous vein grafts to RCA and OMB are also occluded. There is collateralization to the PDA. Due to severely depressed LV performance, AICD has been recommended. Transthoracic echocardiogram of October 22 reveals an ejection fraction of 25%. There is global hypokinesia with severe hypokinesia of the basal to mid anterior, basal anterior vega. There is also moderate dilated right ventricle. Severe pulmonary hypertension with estimated PA pressure at 69. Moderate mitral valve and tricuspid valve regurgitation. Chest x-ray earlier today reveals clear lung almonte with resolution of pulmonary edema. There is modest cardiomyopathy. Incidental finding of 3.9 cm infrarenal abdominal aortic aneurysm with identified on CTA of the chest on October 22 as part of a rule out for pulmonary embolism. Review of Systems Const: Reports: fatigue; Denies: fever(s), chills, change in appetite, change in weight or night sweats Eyes: Denies: change in vision or blurry vision ENMT: Denies: odynophagia or hoarseness Card: Reports: palpitations, irregular heart rhythm, edema (Improving), dyspnea on exertion and orthopnea; Denies: chest pain (Currently resolved) Resp: Reports: dyspnea; Denies: productive cough GI: Denies: abdominal pain, nausea, vomiting, dysphagia, heartburn or change in bowel habits : Denies: difficulty urinating, dysuria, urinary frequency, urinary urgency or urinary hesitancy Musc: Denies: extremity pain or extremity swelling Skin/Breast: Denies: rash Neuro: Reports: weakness in extremities (Mild secondary to previous CVA) and difficulty walking; Denies: headache(s), numbness in extremities, sensory changes or seizure-like activity Psych: Denies: anxiety, depression or change in appetite Endo: Denies: polyuria, polydipsia or cold intolerance Shane/Lymph: Denies: easy bruising, easy bleeding, petechiae or enlarged lymph nodes Meds/Allergies Home Medications and Allergies Home Medications Medication Instructions Recorded Confirmed Last Taken Type No Known Home Medications 10/22/21 10/22/21 Unknown History Allergies Allergy/AdvReac Type Severity Reaction Status Date / Time No Known Allergies Allergy Verified 10/22/21 03:43 Current Medications Current Medications Generic Name Dose Route Start Last Admin Trade Name Freq PRN Reason Stop Dose Admin Albuterol/Ipratropium 3 ml 10/22/21 08:02 10/22/21 19:36 Ipratropium-Albuterol 3 Ml Neb INHALATION 3 ml Q4H PRN Administration SHORTNESS OF BREATH Alprazolam 0.5 mg 10/22/21 18:05 10/25/21 20:49 Alprazolam 0.5 Mg Tablet PO 0.5 mg BID PRN Administration ANXIETY Amlodipine Besylate 5 mg 10/24/21 09:00 10/26/21 08:48 Amlodipine 5 Mg Tablet PO 5 mg DAILY PENNY Administration Atorvastatin Calcium 80 mg 10/22/21 21:00 10/25/21 20:49 Atorvastatin 40 Mg Tablet PO 80 mg BEDTIME PENNY Administration Bumetanide 1 mg 10/25/21 09:00 10/26/21 08:47 Bumetanide 1 Mg Tablet PO 1 mg DAILY PENNY Administration Enoxaparin Sodium 40 mg 10/24/21 21:00 10/24/21 20:34 Enoxaparin 40 Mg/0.4 Ml Syringe SUBCUT 40 mg Q24H PENNY Administration Levofloxacin 750 mg 10/23/21 06:00 10/26/21 04:49 Levofloxacin 750 Mg Tablet PO 750 mg DAILY@0600 PENNY Administration Protocol Pantoprazole Sodium 40 mg 10/22/21 09:00 10/26/21 08:[address] 40 Mg Tablet PO 40 mg DAILY PENNY Administration Potassium Chloride 20 meq 10/24/21 09:00 10/26/21 08:47 Potassium Chloride Er 20 Meq Tablet PO 20 meq DAILY PENNY Administration PFSH Acute PFSH: Medical History (Updated 10/26/21 @ 14:24 by Jasvir Stephens MD) CAD (coronary artery disease) Dyslipidemia HTN (hypertension) Ischemic congestive cardiomyopathy Stroke Surgical History S/P CABG x 3 Vitals/I&O/Wt Last Vital Signs Temp 98.0 F 10/26/21 08:53 Pulse 70 10/26/21 09:04 Resp 18 10/26/21 09:04 BP 108/87 10/26/21 08:53 Pulse Ox 98 10/26/21 09:04 10/25/21 10/26/21 10/26/21 22:59 06:59 14:59 Intake Total 740 / 1212 0 / 1212 50 / 50 Output Total 300 / 1500 300 / 1800 1150 / 1150 Balance 440 / -288 -300 / -588 -1100 / -1100 Weight last 48 hrs Weight 172 lb 12.8 oz Weight 173 lb 6.4 oz Physical Exam Const: COMMON NORMALS: patient oriented x3 HENMT: COMMON NORMALS: normocephalic, atraumatic, hearing grossly normal bilaterally and external ears normal HEAD & SCALP: normal to inspection, normocephalic and atraumatic EXTERNAL EAR: Yes external ears normal Neck/C-Spine: COMMON NORMALS: full ROM and supple GENERAL: Yes trachea midline, No anterior neck swelling and No lymphadenopathy Chest: COMMONS NORMALS: normal inspection of the chest Resp: COMMON NORMALS: normal respiratory effort, No retractions, No use of accessory muscles and clear to auscultation bilaterally EFFORT & INSPECTION: Yes able to speak in complete sentences and Yes symmetric chest movement AUSCULTATION: clear to auscultation bilaterally Cardio: COMMON NORMALS: regular rate, regular rhythm and S1 normal heart sound present RATE: regular rate RHYTHM: regular rhythm HEART SOUNDS: S1 no rmal heart sound present and Murmur heart sound present systolic BRUITS: no carotid bruits Extremity: COMMON NORMALS: no calf tenderness Neuro: COMMON NORMALS: patient oriented x3; negative for moves all extremities, negative for no focal motor deficits and negative for no sensory deficits noted OTHER: Substantial right upper extremity paralysis. Right lower extremity paresis. Psych: COMMON NORMALS: mental status grossly normal, Normal thought process present, cooperative, normal affect and speech normal SPEECH: Yes normal speech THOUGHT PROCESS: Normal thought process present Skin: COMMON NORMALS: no rashes or lesions noted GENERAL SKIN EXAM: no rashes or lesions noted Data Micro: Micro: Microbiology 10/22/21 21:00 Gram Stain - Final Sputum - Expector ated Sputum Sputum Culture - F inal Escherichia col i A&P Assessment and plan (1) Ischemic congestive cardiomyopathy: 55-year-old gentleman with ischemic cardiomyopathy and prior CABG in 2004. Recent left heart catheterization on October 24 reveals patent LOZANO to LAD with all of the grafts being closed. There is collateralization to the PDA. The RCA is chronically occluded. Dr. Clinton has recommended AICD implantation. This was carefully discussed with Mr. Carrasco. Rationale was reviewed. There continues to be runs of nonsustained ventricular tachycardia despite maximal medical management. Details and risks of the procedure were carefully and frankly discussed. Risks reviewed include the possibility of , stroke, heart attack, major bleeding, perforation of the heart or major vessels, infection which might actually require removal of the entire system, pneumonia, pneumothorax requiring chest tube, organ failure, failure to benefit, prolonged hospital stay, pain after the procedure, need for further procedures, inability to complete the procedure, dislodgment of the leads requiring revision, and possible need for long-term followup. All questions were answered. Appropriate consents will be provided for review and signature. Status: Acute Consult Attestations Medical Necessity Statement: Ischemic cardiomyopathy with refractory NSVT Time Spent in Patient Care: Greater than 35 minutes Coding Level of Care Code Acute Pit And Auxiliaries Supervisor for [facility] Fwd Diagnoses Ischemic congestive cardiomyopathy I25.5; I42.0
[2021-10-26] MEDS: aspirin 81 mg EC Tablet PO (14:47)
[2021-10-26] MEDS: mupirocin oint 22 gm 1 APPLIC NOSTRIL-B (14:47)
[2021-10-26] MEDS: chlorhexidine gluconate 4% Btl 118 mL 1 APPLIC TOPICAL (19:31)
--- NOTE | 2021-10-26 19:39 | PC.NURSE ---
Received report from DELIA Calderon. Patient sitting on edge of bed. Discussed plan for AICD placement tomorrow. Patient verbalized complete understanding. DELIA Calderon obtained signed consent at this time. Betasept at bedside. Patient removing hair from upper chest. Instructed patient on need for Betasept shower and patient is most agreeable at this time. Shower made ready. Patient denies pain. No distress observed. Will continue to monitor.
--- NOTE | 2021-10-26 20:23 | PC.NURSE ---
Shift Note Frequent safety and comfort rounds continue. Orders and/or nursing care completed as indicated. Patient monitored for response to intervention and treatment(s). Education provided includes AICD placement surgical site infection control, post defibrillator wound care and activity restrictions, 1500 FR . Patient and/or passenger relations representative verbalizes understanding. Will continue to monitor.
[2021-10-26] MEDS: atorvastatin 40 mg Tablet 80 MG PO (20:39)
[2021-10-27] VITALS (13 sets, daily range): BP systolic 81–145; BP diastolic 54–102; PULSE 71–81; RESP 14–23; TEMP 36.5–36.7; O2SAT 90–98
--- NOTE | 2021-10-27 | SCC_ITS ---
Procedure Done: Automatic implantable cardiac defibrillator implantation 34.6 seconds of fluoroscopic guidance, for a cumulative dose of 7.11 mGy, was provided to Dr. Stephens by the radiology department. C-arm images of the chest were saved for the patient's permanent record. [facility]ITAL[facility]
[2021-10-27 04:19] LABS: Basophils % 0.2 %; Eosinophils # 0.6 10^3/uL (0.0-0.8); Eosinophils % 4.5 %; Hematocrit 41.8 % (42.0-52.0); Hemoglobin 13.6 g/dL (11.7-16.6); Lymphocytes # 2.1 10^3/uL (0.8-4.8); Lymphocytes % 16.9 %; Mean Corpuscular HGB Conc 32.5 g/dL (30.0-36.0); Mean Corpuscular Hemoglobin 30.9 pg (28.0-34.0); Mean Platelet Volume 12.5 fL (7.4-10.4); Monocytes # 1.6 10^3/uL (0.2-0.9); Monocytes % 12.4 %; Neutrophils # 8.25 10^3/uL (1.8-7.7); Neutrophils % 65.7 %; Nucleated Red Blood Cells % 0 %; Platelet Count 171 10^3/cmm (130-400); White Blood Count 12.6 10^3/uL (4.0-10.0)
[2021-10-27 04:32] LABS: Anion Gap 16.4 (5-19); Blood Urea Nitrogen 24 mg/dL (6-20); Calcium 8.3 mg/dL (8.5-10.5); Carbon Dioxide 24 mmol/L (22-29); Chloride 102 mmol/L (98-107); Glomerular Filtration Rate 57.3 mL/min (90-130); Glucose 129 mg/dL (65-115); Magnesium 1.8 mg/dL (1.7-2.3); Osmolality Calculated 292 mOsm/kg (285-295); Potassium 4.4 mmol/L (3.5-5.1); Sodium 138 mmol/L (136-145)
[2021-10-27] MEDS: levoFLOXacin 750 mg Tablet PO (04:57)
--- NOTE | 2021-10-27 05:34 | PC.NURSE ---
Shift Note Frequent safety and comfort rounds continue. Orders and/or nursing care completed as indicated. Patient monitored for response to intervention and treatment(s). Education provided include AICD placement. Patient verbalized complete understanding and is ready . Patient denies pain at this time. No distress observed. Patient is NPO. Will continue to monitor.
--- NOTE | 2021-10-27 06:18 | PM.PN ---
Subjective Subjective: Interval history: Resting on rounds. No complaints. Nurses report no arrhythmias overnight. Last noted arrhythmia was a 7 beat run of V. tach early yesterday afternoon. Vitals/I&O/Wt Last Vital Signs Temp 98.1 F 10/27/21 04:00 Pulse 79 10/27/21 04:05 Resp 16 10/27/21 04:00 BP 104/68 10/27/21 04:00 Pulse Ox 98 10/27/21 04:00 10/26/21 10/26/21 10/27/21 14:59 22:59 06:59 Intake Total 390 / 390 236 / 626 100 / 726 Output Total 1450 / 1450 550 / 2000 Balance -1060 / -1060 236 / -824 -450 / -1274 Weight last 48 hrs Weight 173 lb Weight 172 lb 12.8 oz Physical Exam Resp: COMMON NORMALS: normal respiratory effort and clear to auscultation bilaterally AUSCULTATION: clear to auscultation bilaterally Cardio: COMMON NORMALS: regular rate, regular rhythm and S1 normal heart sound present RATE: regular rate RHYTHM: regular rhythm HEART SOUNDS: S1 normal heart sound present and Murmur heart sound present systolic Extremity: COMMON NORMALS: no clubbing, cyanosis or edema Data : 10/27/21 03:25 10/27/21 03:25 A&P Assessment and plan (1) NSVT (nonsustained ventricular tachycardia): NSVT with ischemic cardiomyopathy and ejection fraction of 25%. Plan: We will schedule for AICD placement this afternoon. Rationale carefully discussed with Mr. Stanford. He is in agreement. Status: Acute Attestations Medical Necessity Statement*: NSVT with ischemic cardiomyopathy and low ejection fraction Time Spent in Patient Care: less than 15 minutes Coding Level of Care Code Acute Encoding Machine Operator for [facility] Fwd Diagnoses NSVT (nonsustained ventricular tachycardia) I47.2
--- NOTE | 2021-10-27 08:30 | P.PN_ITS ---
Subjective Subjective: Interval history: Seen this morning. Patient states he feels well and looking forward to his procedure at noon today. He will be getting AICD placed. No acute events overnight. There were runs of nonsustained V. tach yesterday afternoon on telemetry. Vitals/I&O/Wt Last Vital Signs Temp 97.7 F 10/27/21 12:05 Pulse 73 10/27/21 12:05 Resp 18 10/27/21 12:05 BP 103/67 10/27/21 12:05 Pulse Ox 97 10/27/21 12:05 10/26/21 10/27/21 10/27/21 22:59 06:59 14:59 Intake Total 236 / 626 100 / 726 0 / 0 Output Total 550 / 2000 325 / 325 Balance 236 / -824 -450 / -1274 -325 / -325 Weight last 48 hrs Weight 78.471 kg Weight 78.381 kg Physical Exam Narrative: EXAM NARRATIVE: General: Alert oriented x3, patient seen laying in bed appearing very comfortable, Cardio: normal S1-S2, no gross murmurs, Respiratory: Lungs mainly clear to auscultation GI: Abdomen soft, nontender, Extremities: no edema, no cyanosis Data : 10/27/21 03:25 10/27/21 03:25 A&P Assessment and plan (1) HTN (hypertension): Status: Acute (2) Dyslipidemia: Status: Acute (3) CHF (congestive heart failure): Status: Acute (4) Non-ST elevation [place] (NSTEMI): Status: Acute Additional A&P Information #Acute congestive heart failure exacerbation with acute hypoxia (hypoxia resolved with diuretics) #NSTEMI s/p angio with no interventions #JAMIE 2/2 cardiorenal syndrome - resolved #Runs of nonsustained ventricular tachycardia. Reduced action fraction, EF 25% No intervention at the time of coronary angiogram, LOZANO to LAD patent, venous graft occluded, He is awaiting AICD placement today. He has been n.p.o. since midnight. Continue Bumex 1 mg daily orally. Will order home O2 eval at discharge AICD to be placed around noon today. Nonsustained V. tach on telemetry 10/26: Replete electrolytes, continue toprol 100. #Hypertensive emergency - resolved: He also required nitroglycerin drip at the time of admission, blood pressure improved with use of oral antihypertensive regimen Cardiac diet after AICD placement. DVT prophylaxis: Hold in anticipation of AICD placement Full code Attestations Medical Necessity Statement*: Potential discharge tomorrow Coding Level of Care Code Acute Machine Crater for Chg Fwd Diagnoses HTN (hypertension) I10 Dyslipidemia E78.5 CHF (congestive heart failure) I50.9 Non-ST elevation [place] (NSTEMI) I21.4
[2021-10-27] MEDS: metoprolol succinate ER (24 HR) 100 mg Tablet 125 MG PO (09:27)
[2021-10-27] MEDS: bumetanide 1 mg Tablet PO (09:28)
[2021-10-27] MEDS: pantoprazole DR 40 mg Tablet PO (09:28)
[2021-10-27] MEDS: potassium chloride ER 20 mEq Tablet PO (09:28)
[2021-10-27] MEDS: amlodipine 5 mg Tablet PO (09:28)
[2021-10-27] MEDS: aspirin 81 mg EC Tablet PO (09:28)
[2021-10-27] MEDS: lisinopril 10 mg Tablet 20 MG PO (09:29)
--- NOTE | 2021-10-27 09:32 | PC.CHAP ---
Pastoral Care Encounter/Spiritual Assessment Type of Contact [] Declined service counselor visit [] Patient/Family/Request visit [] Outpatient visit [] Follow-up visit [] Physician referral [] Code/Alert [x] Routine visit [] Staff referral [] Actively dying [] Patient sleeping [] Family support [] [] Out of room [] Palliative care [] [] Receiving care in room [] Pre-surgical visit [] Trauma [] Long length of stay [] ICU visit [] Other: Relational/Emotional Strength [x] Patient feels connected with others/family/visitors/staff [] Distress [] Loneliness/isolation [] Abandonment Spirituality of Patient [x] Person of Nida [] Attends Christianity of their Nida [] Believes in Prayer [x] Reads Bible or Yarsanism materials [] There are Spiritual issues to be addressed Poultry Veterinarian Interventions [x] Prayer [x] Active listening [x] Non-anxious presence [x] Spiritual/emotional support [] Crisis/trauma care [] Spiritual counseling [] Bereavement support [] Provided bereavement packet [] Provided Bible/devotional materials [] Provided toy/stuffed animal, coloring book to patient or family member [] Provided Communion [] Anointing/Crapo [] Salvation [x] Completed spiritual assessment [] Other: Impact on Illness or Injury [] Angry [] Fearful [] Anxious [] Often cries [] Exhaustion [] Unable to work [] Unable to attend sabianist [] Unable to walk/stand [] Unable to read [] Unable to drive [] Unable to eat/drink [] Unable to sleep [] Unable to be with family [] Patient intubated [] Other: Summary Pt in good spirits and expecting to be released tomorrow. He has connections within the community with family and friends and says many many people have been calling to check on him. 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 He is ready to get back to work. 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 Pt stated he is a person of nida and does read his Bible. A Daily Bread was offered and he gladly took it. Time spent with patient 15m
[2021-10-27] MEDS: chlorhexidine gluconate 4% Btl 118 mL 1 APPLIC TOPICAL (09:46)
--- NOTE | 2021-10-27 09:59 | PC.SOCIAL ---
IMM Update Pg. 2 of IMM updated and reviewed with patient, who verbalized understanding. Copy provided.
--- NOTE | 2021-10-27 12:03 | PC.NURSE ---
to or for aicd implantation via stretcher at this time
--- NOTE | 2021-10-27 12:12 | PM.PN ---
Subjective Subjective: Interval history: No new complaints. Awaiting ICD placement. runs of NSVT yesterday Medications: Reviewed: Yes Vitals/I&O/Wt Last Vital Signs Temp 98.1 F 10/27/21 04:00 Pulse 81 10/27/21 10:22 Resp 18 10/27/21 10:22 BP 107/72 10/27/21 08:00 Pulse Ox 98 10/27/21 10:22 10/26/21 10/27/21 10/27/21 22:59 06:59 14:59 Intake Total 236 / 626 100 / 726 0 / 0 Output Total 550 / 2000 325 / 325 Balance 236 / -824 -450 / -1274 -325 / -325 Weight last 48 hrs Weight 173 lb Weight 172 lb 12.8 oz Physical Exam Narrative: EXAM NARRATIVE: EXAM NARRATIVE: GENERAL: Averagely built and averagely nourished in no acute distress HEENT: Pupils equal round reactive to light. No pallor or icterus. NECK: No JVD, No carotid bruit. CARDIOVASCULAR SYSTEM: S1-S2 regular. No S3 or S4 present. No murmur rubs or gallops. RESPIRATORY SYSTEM: Chest clear to auscultation. No wheezes. No rales ABDOMEN: Soft, nontender and nondistended. Normal bowel sounds present. EXTREMITIES: No cyanosis No edema. No signs of chronic venous insufficiency. STEM TEACHER: Patient is alert oriented ?3. Right upper and lower extremity weakness Data : 10/27/21 03:25 10/27/21 03:25 A&P Assessment and plan (1) Non-ST elevation CO (NSTEMI): Patient's only patent vessel on coronary angiogram was LOZANO to LAD. It is also giving collaterals to the PDA. SVG to OM and SVG to RCA are occluded. [employer] vessels are proximally occluded. Patient's chances of recovery of cardiac function given only blood supply to the heart is through LOZANO is unlikely. -He will need placement of ICD. He is also having several runs of NSVT. -I discussed with Dr. Stephens about ICD placement while he is in the hospital. As he has right sided weakness, he will need right sided ICD placement. There was some concern about insurance coverage as we do not have any prior echo (no medical care in last several years). However, the severely decreased LV function with aneurysmal appearing inferior wall and severe hypokinesis in LAD territory does not appear to be new and is unlikely to improve with medical management. -After prolonged discussion with patient and UR ; decision was made to formally consult Dr. Stephens for ICD placement tomorrow. -continue ASA, statin. Awaiting ICD placement today Status: Acute (2) CHF (congestive heart failure): HFrEF (LVEF=25%) Continue p.o. Bumex. Apperas euvolemic. - kidney function with slight increase in creatinine -on Lisinopril and metoprolol. -f/u on BMP Status: Acute (3) HTN (hypertension): continue meds -f/u on BMP Status: Acute (4) Dyslipidemia: Status: Acute Additional A&P Information Coronary disease s/p CABG x3 leukocytosis: on abx for possible PNA Frequent NSVT : Keep K>4 and Mg>2; continue beta jaye Bilateral pleural effusion Infrarenal aortic aneurysm JAMIE secondary to renovascular congestion: resolved with diuresis Hypokalemia: Replaced Chronic active smoker Noncompliant History of stroke with residual right-sided weakness Thank you for allowing me to participate in patient's care. Please feel free to call with questions or concerns. Attestations Medical Necessity Statement*: Needs hospital stay for med titration and ICD placement Time Spent in Patient Care: 16 - 35 minutes (>than 50% of time spent in counselling and/or direct pt care on unit). Coding Level of Care Code Acute Software Clerk for Ev De Paz Diagnoses Non-ST elevation CO (NSTEMI) I21.4 CHF (congestive heart failure) I50.9 HTN (hypertension) I10 Dyslipidemia E78.5
--- NOTE | 2021-10-27 12:32 | ANES.PREANE2 ---
Pre-Anesthetic Assessment Pre-Anesthetic Assessment: Height/Weight: Height 1.85 m Weight 78.471 kg Temp Pulse Resp BP Pulse Ox 97.7 F 73 18 103/67 97 10/27/21 12:05 10/27/21 12:05 10/27/21 12:05 10/27/21 12:05 10/27/21 12:05 Preop Diagnosis: NSTEMI/ New onset heart failure Proposed Procedure: Operation Date: 10/24/21 09:00 Proposed Procedures p Cardiac Catheterization(Left) - Rohan Eden M.D Operation Date: 10/27/21 13:40 Proposed Procedures p Defibrillator Placement(Not Applicable) - Jasvir Stephens MD Was Beta Lucien taken within 24 hours: Yes Was Clonidine taken within 24 hours: N/A Social: Social History: No alcohol and No tobacco Exam: Pre-Anes Outpt Exam: alert, oriented x 3 and regular rate & rhythm Additional Exam Findings (including area of procedure): Course wet lung sounds bilaterally Airway: Submandibular: WNL Cervical ROM: WNL MP: 1 Dentition: Chipped Additional comments: Multiple missing teeth Pulmonary: Pulmonary: ROACH and SOB CV/HEM: CV/HEM: Arrythmia, CHF, HTN and [place] Comments: Admitted for NSTEMI Hx of CABG now only patent vessel LOZANO to LAD, with collateral to remainder Now with VT Echo Report CONCLUSIONS 1. Mildly increased left ventricular cavity size. Eccentric left ventricular hypertrophy. Severely decreased left ventricular systolic function. Left ventricular ejection fraction is estimated at 25 %. Global hypokinesis with severe hypokinesis of basal to mid anterior, basal inferior vega. Abnormal diastolic function. 2. Moderately dilated right ventricle with moderately decreased right ventricle systolic function. 3. Severe pulmonary hypertension with pulmonary artery pressure estimated at 69 mmHg. 4. At least moderate somewhat posteriorly directed mitral valve regurgitation. 5. Moderate tricuspid valve regurgitation. 6. Dilated proximal ascending aorta measured anteroposteriorly at 3.9 cm. 7. No prior similar studies to compare. : Comments: JAMIE Hepatic: Hepatic: None reported GI: GI: GERD Metabolic: Metabolic: None reported Comments: Right sided weakness status post CVA Musc/skel: Musc/skel: Weakness (Right sided weakness post CVA) Neuropsych: Neuropsych: CVA Anesthetic Plan: ASA status: 4 Anesthesia: MAC Risk of > 500 ml blood loss (7ml/kg in children): No Other Pertinent Information: I discussed with patient risk and beneftis of MAC. Plan MAC anesthesia. Patient understands that he will be on a spectrum of anesthesia somewhere between wide awake and completely asleep with chance for recalll of intraoperative events and stimuli includign pain. Meds/Allergies Current Medications: Current Medications Generic Name Dose Route Start Last Admin Trade Name Freq PRN Reason Stop Dose Admin Albuterol/Ipratrop ium 3 ml 10/22/21 08:02 10/22/21 19:36 Ipratropium-Albu terol 3 Ml Neb INHALATION 3 ml Q4H PRN Administration SHORTNESS OF ROD TH Amlodipine Besylat e 5 mg 10/24/21 09:00 10/27/21 09:28 Amlodipine 5 Mg Tablet PO 5 mg DAILY PENNY Administration Aspirin 81 mg 10/26/21 12:35 10/27/21 09:28 Aspirin 81 Mg Ec Tablet PO 81 mg DAILY PENNY Administration Atorvastatin Calci um 80 mg 10/22/21 21:00 10/26/21 20:39 Atorvastatin 40 Mg Tablet PO 80 mg BEDTIME PENNY Administration Bumetanide 1 mg 10/25/21 09:00 10/27/21 09:28 Bumetanide 1 Mg Tablet PO 1 mg DAILY PENNY Administration Chlorhexidine Gluc mery 1 applic 10/26/21 18:00 10/27/21 09:46 Chlorhexidine Gl uconate 4% Btl 118 Ml TOPICAL 1 bottle BID PENNY Administration Enoxaparin Sodium 40 mg 10/24/21 21:00 10/24/21 20:34 Enoxaparin 40 Mg /0.4 Ml Syringe SUBCUT 40 mg Q24H PENNY Administration Levofloxacin 750 mg 10/23/21 06:00 10/27/21 04:57 Levofloxacin 750 Mg Tablet PO 750 mg DAILY@0600 PENNY Administration Protocol Lisinopril 20 mg 10/27/21 09:00 10/27/21 09:29 Lisinopril 10 Mg Tablet PO 20 mg DAILY PENNY Administration Metoprolol Succina te 125 mg 10/27/21 09:00 10/27/21 09:27 Metoprolol Succi roldan Er (24 Hr) 10 0 Mg Tablet PO 125 mg DAILY PENNY Administration Pantoprazole Sodiu m 40 mg 10/22/21 09:00 10/27/21 09:[address] 40 Mg Tablet PO 40 mg DAILY PENNY Administration Potassium Chloride 20 meq 10/24/21 09:00 10/27/21 09:28 Potassium Chlori de Er 20 Meq Table t PO 20 meq DAILY PENNY Administration PFSH Anesthesia PFSH: Medical History CAD (coronary artery disease) Dyslipidemia HTN (hypertension) Ischemic congestive cardiomyopathy Stroke Surgical History S/P CABG x 3 Data Anesthesia CBC & Chem 7: 10/27/21 03:25 10/27/21 03:25 Other Labs: Laboratory Results - last 48 hr 10/26/21 10/26/21 10/27/21 04:59 04:59 03:25 WBC 13.8 H 12.6 H RBC 4.60 4.40 Hgb 14.3 13.6 Hct 44.0 41.8 L MCV 95.7 H 95.0 H MCH 31.1 30.9 MCHC 32.5 32.5 RDW 13.1 13.0 Plt Count 143 171 MPV 13.0 H 12.5 H Neut % (Auto) 71.1 65.7 Lymph % (Auto) 14.7 16.9 Beckham % (Auto) 9.6 12.4 Eos % (Auto) 4.1 4.5 Baso % (Auto) 0.1 0.2 Neut # (Auto) 9.81 H 8.25 H Lymph # (Auto) 2.0 2.1 Beckham # (Auto) 1.3 H 1.6 H Eos # (Auto) 0.6 0.6 Baso # (Auto) 0.0 0.0 Nucleated RBC % (auto) 0 0 Nucleated RBCs # 0.0 0.0 Sodium 137 Potassium 4.3 Chloride 103 Carbon Dioxide 20 L Anion Gap 18.3 BUN 19 Creatinine 1.0 GFR Calculation 77.6 L Glucose 97 Calculated Osmolality 286 Calcium 8.3 L Magnesium 10/27/21 03:25 WBC RBC Hgb Hct MCV MCH MCHC RDW Plt Count MPV Neut % (Auto) Lymph % (Auto) Beckham % (Auto) Eos % (Auto) Baso % (Auto) Neut # (Auto) Lymph # (Auto) Beckham # (Auto) Eos # (Auto) Baso # (Auto) Nucleated RBC % (auto) Nucleated RBCs # Sodium 138 Potassium 4.4 Chloride 102 Carbon Dioxide 24 Anion Gap 16.4 BUN 24 H Creatinine 1.3 H GFR Calculation 57.3 L Glucose 129 H Calculated Osmolality 292 Calcium 8.3 L Magnesium 1.8 Cardiac Studies: Echocardiogram 10/22/21
[2021-10-27] MEDS: sodium chloride 0.9% 1,000 ML 30 ML IV (12:45)
--- NOTE | 2021-10-27 16:03 | ANE.PACU2 ---
Inpatient post-anesthesia follow up: Airway intact: Yes Vital signs: Temperature 97.7 F Pulse Rate 73 Respiratory Rate 18 Blood Pressure 103/67 Pulse Oximetry 97 Oxygen Delivery Me thod Room Air Oxygen Flow Rate 2 Fraction of Inspir ed Oxygen 0 Hydration adequate: Yes Nausea and vomiting: No Pain level: 2 Mental status: Baseline
[2021-10-27] MEDS: lidocaine 1% INJ 20 mL 7 ML INJECTION (18:00)
[2021-10-27] MEDS: ceFAZolin 1,000 mg SDV 1000 MG IRRIGATION (18:10)
--- NOTE | 2021-10-27 18:58 | SC_ITS ---
WS: [id number] Exam: C-arm FL for Pacemaker Date/Time of Exam: 10/27/2021 6:58 PM Reason For Exam: DEFIBULATOR Limited C-arm images of the central chest are submitted for evaluation. The images depict a single defibrillator lead coursing along the region of the superior vena cava, ri ght atrium and probably ending in the right ventricle. Sternal sutures are noted. No other significan t finding on this limited series.
--- NOTE | 2021-10-27 19:15 | PM.OP ---
Operative Report Date of procedure: October 27, 2021 Pre-op Diagnosis: NSTEMI/ heart failure: Nonsustained ventricular tachycardia Post-op diagnosis: same Procedure Done: Automatic implantable cardiac defibrillator implantation Implants: AICD generator and lead Pathology: none sent Surgeon: Jasvir Stephens Anesthesia: MAC and Local Complications: None: Post procedure chest x-ray pending Condition: stable Disposition: floor Brief History: Mr. Carrasco is a 55-year-old gentleman with known cardiomyopathy with an ejection fraction of 25%. He has had prior coronary bypass grafting in 2004. He presented this hospitalization with congestive heart failure as well as episodes of nonsustained ventricular tachycardia. Due to his cardiomyopathy, it was felt by our cardiology colleagues and AICD should be placed given his medically refractory NSVT. Details of risk of the procedure were carefully and frankly discussed. Appropriate consents were reviewed and signed. Procedure: Procedure: Mr. Carrasco was taken to the OR suite and placed in the supine position over a shoulder roll. He received conscious sedation with continuous anesthesia monitoring by. His entire chest was sterilely prepped and draped. 1% lidocaine was infiltrated in the left subclavicular region. While in Trendelenburg position, utilizing modified seldinger technique, a guidewire was placed in the left subclavian vein. This was confirmed in position by fluoroscopy. Next, after infiltration with lidocaine, a subcutaneous pocket was created beginning from the exit point of the guidewire and extending laterally and inferiorly. Cautery was utilized to create the pocket just above the pectoralis musculature. Hemostasis was confirmed. An antibiotic-soaked sponge was placed in the wound. A dilator and tear-away sheath was placed over the guidewire and advanced under fluoroscopy. Guidewire and dilator were removed. Next using a combination of curved and straight stylettes, the right ventricular lead was placed in position by fluoroscopy. The distal screw was extended. Interrogation was then performed confirming appropriate parameters. The tear-away sheath was then removed and the ventricular lead was sewn to the floor of the subcutaneous pocket. Generator was brought into the field, and after confirmation of hemostasis in the subcutaneous pocket, the leads was connected to the generator with appropriate capture. The entire system was interrogated by fluoroscopy. Leads and generator were secured in the pocket. Sponge and needle count was correct. The wound was then closed in 2 layers of 3-0 Vicryl suture. Skin was reapproximated in a subcuticular manner with 4-0 Monocryl suture. A pressure dressing was applied. The left arm was placed in a sling. Mr. Carrasco had equal breath sounds bilaterally. He was then transferred to the PACU, where chest x-ray is currently pending. Family was counseled at the completion of the procedure. Following are the specifics of this system: Right ventricular lead is 62 cm and model 6935M. Serial number [id number] Ventricular lead had sensing of 8.4 mV with an impedance of 744 ohms. Threshold was 0.9 V [employer] AICD generator: Model # [id number] Serial # [id number]
--- NOTE | 2021-10-27 19:23 | ANE.PACU2 ---
Inpatient post-anesthesia follow up: Airway intact: Yes Vital signs: Temperature 97.9 F Pulse Rate 77 Respiratory Rate 17 Blood Pressure 101/58 Pulse Oximetry 92 Oxygen Delivery Me thod Room Air Oxygen Flow Rate 2 Fraction of Inspir ed Oxygen 0 Hydration adequate: Yes Nausea and vomiting: No Pain level: 2 Mental status: Baseline
--- NOTE | 2021-10-27 19:27 | PC.NURSE ---
at end of dayshift..pt remains in or
[2021-10-27] MEDS: atorvastatin 40 mg Tablet 80 MG PO (20:05)
[2021-10-27 20:55] LABS: Glucose Point of Care 216 mg/dL (70-110)
--- NOTE | 2021-10-27 22:04 | PC.NURSE ---
Dr. Waters notified of patient asking for pain medication to incision site to left upper chest. Incision site and dressing assessment WNL.
[2021-10-27] MEDS: HYDROcodone-acetaminophen 10-325 mg Tablet 1 TAB PO (22:21)
[2021-10-28] VITALS (9 sets, daily range): BP systolic 97–121; BP diastolic 68–89; PULSE 70–78; RESP 16–28; TEMP 36.4–36.8; O2SAT 93–98
[2021-10-28] MEDS: HYDROcodone-acetaminophen 10-325 mg Tablet 1 TAB PO (03:57)
[2021-10-28] MEDS: levoFLOXacin 750 mg Tablet PO (03:57)
[2021-10-28 04:17] LABS: Basophils % 0.2 %; Eosinophils # 0.5 10^3/uL (0.0-0.8); Eosinophils % 3.3 %; Hemoglobin 14.1 g/dL (11.7-16.6); Lymphocytes # 2.2 10^3/uL (0.8-4.8); Lymphocytes % 14.3 %; Mean Corpuscular HGB Conc 32.8 g/dL (30.0-36.0); Mean Corpuscular Hemoglobin 31.2 pg (28.0-34.0); Mean Corpuscular Volume 95.1 fl (80-94); Mean Platelet Volume 12.4 fL (7.4-10.4); Monocytes # 1.9 10^3/uL (0.2-0.9); Monocytes % 12.1 %; Neutrophils # 10.64 10^3/uL (1.8-7.7); Neutrophils % 69.7 %; Nucleated Red Blood Cells % 0 %; Platelet Count 181 10^3/cmm (130-400); Red Blood Count 4.52 10^6/uL (4.1-5.3); Red Cell Distribution Width 13.2 % (12.1-15.1); White Blood Count 15.3 10^3/uL (4.0-10.0)
[2021-10-28 04:45] LABS: Anion Gap 17.9 (5-19); Blood Urea Nitrogen 24 mg/dL (6-20); Calcium 8.5 mg/dL (8.5-10.5); Carbon Dioxide 23 mmol/L (22-29); Chloride 102 mmol/L (98-107); Glomerular Filtration Rate 52.6 mL/min (90-130); Glucose 105 mg/dL (65-115); Magnesium 1.9 mg/dL (1.7-2.3); Osmolality Calculated 290 mOsm/kg (285-295); Potassium 4.9 mmol/L (3.5-5.1); Sodium 138 mmol/L (136-145)
[2021-10-28 07:19] LABS: Glucose Point of Care 96 mg/dL (70-110)
[2021-10-28] MEDS: metoprolol succinate ER (24 HR) 100 mg Tablet 125 MG PO (07:46)
[2021-10-28] MEDS: aspirin 81 mg EC Tablet PO (07:46)
[2021-10-28] MEDS: amlodipine 5 mg Tablet PO (07:46)
[2021-10-28] MEDS: lisinopril 10 mg Tablet 20 MG PO (07:47)
[2021-10-28] MEDS: potassium chloride ER 20 mEq Tablet PO (07:47)
[2021-10-28] MEDS: pantoprazole DR 40 mg Tablet PO (07:47)
[2021-10-28] MEDS: sodium chloride 0.9% 1,000 ML 75 ML IV (08:00)
--- NOTE | 2021-10-28 10:04 | PC.CHAP ---
Pastoral Care Encounter/Spiritual Assessment Type of Contact [] Declined global sales executive visit [] Patient/Family/Request visit [] Outpatient visit [] Follow-up visit [] Physician referral [] Code/Alert [x] Routine visit [] Staff referral [] Actively dying [x] Patient sleeping [] Family support [] [] Out of room [] Palliative care [] [] Receiving care in room [] Pre-surgical visit [] Trauma [] Long length of stay [] ICU visit [] Other: Relational/Emotional Strength [] Patient feels connected with others/family/visitors/staff [] Distress [] Loneliness/isolation [] Abandonment Spirituality of Patient [] Person of Nida [] Attends Bahai of their Nida [] Believes in Prayer [] Reads Bible or Denominational materials [] There are Spiritual issues to be addressed Reel System Operator Interventions [x] Prayer [] Active listening [] Non-anxious presence [] Spiritual/emotional support [] Crisis/trauma care [] Spiritual counseling [] Bereavement support [] Provided bereavement packet [] Provided Bible/devotional materials [] Provided toy/stuffed animal, coloring book to patient or family member [] Provided Communion [] Anointing/[place] [] Salvation [x] Completed spiritual assessment [] Other: Impact on Illness or Injury [] Angry [] Fearful [] Anxious [] Often cries [] Exhaustion [] Unable to work [] Unable to attend congregation [] Unable to walk/stand [] Unable to read [] Unable to drive [] Unable to eat/drink [] Unable to sleep [] Unable to be with family [] Patient intubated [] Other: Summary Time spent with patient
--- NOTE | 2021-10-28 11:07 | P.PN_ITS ---
Subjective Subjective: Interval history: No new complaints. s/p ICD placement. Doing well. No new complaints. Medications: Reviewed: Yes Vitals/I&O/Wt Last Vital Signs Temp 98.1 F 10/28/21 07:47 Pulse 75 10/28/21 09:22 Resp 16 10/28/21 09:22 BP 112/76 10/28/21 07:47 Pulse Ox 96 10/28/21 09:22 10/27/21 10/28/21 10/28/21 22:59 06:59 14:59 Intake Total 560 / 560 670.5 / 1230.5 620 / 620 Output Total 102 / 427 Balance 458 / 133 670.5 / 803.5 620 / 620 Weight last 48 hrs Weight 172 lb 9.6 oz Weight 173 lb Physical Exam Narrative: EXAM NARRATIVE: EXAM NARRATIVE: GENERAL: Averagely built and averagely nourished in no acute distress HEENT: Pupils equal round reactive to light. No pallor or icterus. NECK: No JVD, No carotid bruit. CARDIOVASCULAR SYSTEM: S1-S2 regular. No S3 or S4 present. No murmur rubs or gallops. RESPIRATORY SYSTEM: Chest clear to auscultation. No wheezes. No rales. Left upper chest wall dressed. ABDOMEN: Soft, nontender and nondistended. Normal bowel sounds present. EXTREMITIES: No cyanosis No edema. No signs of chronic venous insufficiency. DIRECTOR STERILE PROCESSING: Patient is alert oriented ?3. Right upper and lower extremity weakness Data : 10/28/21 03:36 10/28/21 03:36 A&P Assessment and plan (1) Non-ST elevation MS (NSTEMI): Patient's only patent vessel on coronary angiogram was LOZANO to LAD. It is also giving collaterals to the PDA. SVG to OM and SVG to RCA are occluded. [place] vessels are proximally occluded. Patient's chances of recovery of cardiac function given only blood supply to the heart is through LOZANO is unlikely. -s/p ICD placement -Normal device function on interrogation this morning. -continue ASA, statin. plavix 75 mg daily on discharge -Plan for CXR and once cleared by Dr. Stephens, may be discharged home Status: Acute (2) CHF (congestive heart failure): HFrEF (LVEF=25%) Continue 1 mg p.o. Bumex on discharge. Appears euvolemic. - kidney function with slight increase in creatinine -decrease Lisinopril to 10 mg and metoprolol at present dose. -f/u BMP in 1 week and f/u with HCS in week -f/u with me in 6 weeks Status: Acute (3) HTN (hypertension): continue meds -f/u on BMP Status: Acute (4) Dyslipidemia: Status: Acute Additional A&P Information Coronary disease s/p CABG x3 leukocytosis: on abx for possible PNA Frequent NSVT : continue beta jaye Bilateral pleural effusion Infrarenal aortic aneurysm JAMIE secondary to renovascular congestion: resolved with diuresis Hypokalemia: Replaced Chronic active smoker Noncompliant History of stroke with residual right-sided weakness Thank you for allowing me to participate in patient's care. Please feel free to call with questions or concerns. Attestations Medical Necessity Statement*: stable to be discharged Time Spent in Patient Care: 16 - 35 minutes (>than 50% of time spent in counselling and/or direct pt care on unit) . Coding Level of Care Code Acute Damage Prevention Coordinator for Ev De Paz Diagnoses Non-ST elevation MS (NSTEMI) I21.4 CHF (congestive heart failure) I50.9 HTN (hypertension) I10 Dyslipidemia E78.5
--- NOTE | 2021-10-28 11:10 | XR_ITS ---
WS: [id number] Exam: XR chest 1V portable [id number] Date/Time of Exam: 10/28/2021 11:10 AM Reason For Exam: Post ICD placement An ICD pack is noted over the left chest in the lead appears to be in appropriate location. Mild card iac enlargement with increased pulmonary vascularity. No focal infiltrates. No pneumothorax or pleura l effusion. Status post CABG surgery. Regional bony structures are intact. The mediastinum is normal in contour. XR/XR chest 1V portable [id number] IMPRESSION: 1. Mild cardiac enlargement with increased pulmonary vascularity. 2. ICD in place over the left chest as noted above.
[2021-10-28 14:01] LABS: Add Urine Microscopic? NO; Charge for UA Resulting for Rev
--- NOTE | 2021-10-28 14:02 | PM.DCS ---
Discharge Providers Date of Admission: 10/22/21 01:50 Date of Discharge: October 28, 2021 Attending Provider at Admission: Evelyn Otero MD Attending Provider at Discharge: Liliam Rocha MD Diagnoses at Discharge Discharge Diagnosis (1) Non-ST elevation VA (NSTEMI): Status: Resolved (2) CHF (congestive heart failure): Status: Acute (3) HTN (hypertension): Status: Acute (4) Dyslipidemia: Status: Acute Reason for Visit Reason for Visit: CP Hospital Course Hospital Course HPI as per Dr. Otero BLADIMIR LLOYD is a 55 year old male with PMH CAD s/p CABG many years ago lost to follow up presenting to the ER today c/o chest pain whc=ihc has been intermittent for the past few days, worsened since tis morning. Also c/o worsening dyspnea, orthopnea over this same time frame. Chest pain resolved with being given morphine and S/L nitroglycerin. EKG shows sinus tachycardia, ST-T wave depressions in Avl, V5,V6 and prolonged qtc interval >500msec. Baseline troponin at 65, 2 hr delta at >80. Cta chest shows no PE, small B/L pleural effusions, 3.9 x 3.6 cm infrarenal abdominal aortic aneurysm with large amount of mural thrombus. Course: Patient admitted for NSTEMI and underwent angiogram. No intervention done at time of angiogram. LOZANO to LAD patent, venous graft occluded. He received AICD prior to discharge. He also has hypertensive ER at admission and required nitro drip for short period of time. Patient also had 3.9 x 3.6 cm infrarenal AAA with large amount of mural thrombus. Patient sent on aspirin and plavix for that. He will follow up with cardiology as outpatient. Physical Exam Narrative: EXAM NARRATIVE: General: Alert oriented x3, patient seen laying in bed appearing very comfortable, Cardio: normal S1-S2, no gross murmurs, Respiratory: Lungs mainly clear to auscultation GI: Abdomen soft, nontender, Extremities: no edema, no cyanosis Discharge Data Data Completed and Pending: Completed Studies During Hospitalization Category Date Time Status CT angio chest PE protcl [id number] Urge nt Cat Scan 10/22/21 01:22 Completed XR chest 1V danita ble [id number] Routine Exams 10/26/21 13:44 Completed XR chest 1V danita ble [id number] Routine Exams 10/28/21 11:10 Completed XR chest 1V danita ble [id number] Stat Exams 10/21/21 23:41 Completed CV. echo complete * [id number] Routine Ultrasound 10/22/21 03:52 Completed Pending at discharge Category Date Time Status [employer] request for service Routin e Exams 10/24/21 08:19 Taken Urinalysis Stat Lab 10/28/21 13:55 Results Labs from last 24 hours 10/28/21 10/28/21 10/28/21 13:55 07:10 03:36 WBC RBC Hgb Hct MCV MCH MCHC RDW Plt Count MPV Neut % (Auto) Lymph % (Auto) Pitkin % (Auto) Eos % (Auto) Baso % (Auto) Neut # (Auto) Lymph # (Auto) Pitkin # (Auto) Eos # (Auto) Baso # (Auto) Nucleated RBC % (a uto) Nucleated RBCs # Sodium 138 Potassium 4.9 Chloride 102 Carbon Dioxide 23 Anion Gap 17.9 BUN 24 H Creatinine 1.4 H GFR Calculation 52.6 L Glucose 105 POC Glucose 96 Calculated Osmolal ity 290 Calcium 8.5 Magnesium 1.9 Urine Color Pending Urine Appearance Pending Urine pH Pending Ur Specific Gravit y Pending Urine Protein Pending Urine Glucose (UA) Pending Urine Ketones Pending Urine Blood Pending Urine Nitrate Pending Urine Bilirubin Pending Urine Urobilinogen Pending Ur Leukocyte Lu ase Pending 10/28/21 10/27/21 03:36 20:11 WBC 15.3 H RBC 4.52 Hgb 14.1 Hct 43.0 MCV 95.1 H MCH 31.2 MCHC 32.8 RDW 13.2 Plt Count 181 MPV 12.4 H Neut % (Auto) 69.7 Lymph % (Auto) 14.3 Pitkin % (Auto) 12.1 Eos % (Auto) 3.3 Baso % (Auto) 0.2 Neut # (Auto) 10.64 H Lymph # (Auto) 2.2 Pitkin # (Auto) 1.9 H Eos # (Auto) 0.5 Baso # (Auto) 0.0 Nucleated RBC % (a uto) 0 Nucleated RBCs # 0.0 Sodium Potassium Chloride Carbon Dioxide Anion Gap BUN Creatinine GFR Calculation Glucose POC Glucose 216 H Calculated Osmolal ity Calcium Magnesium Urine Color Urine Appearance Urine pH Ur Specific Gravit y Urine Protein Urine Glucose (UA) Urine Ketones Urine Blood Urine Nitrate Urine Bilirubin Urine Urobilinogen Ur Leukocyte Lu ase Vitals: Last Vital Signs Temp 97.6 F 10/28/21 11:39 Pulse 75 10/28/21 11:39 Resp 23 H 10/28/21 11:39 BP 121/76 10/28/21 11:39 Pulse Ox 97 10/28/21 11:39 Discharge Plan Discharge Patient Disposition: Home Condition: Stable Prescriptions: New sulfamethoxazole-trimethoprim 400-80 mg tablet 1 tab PO BID Qty: 6 RF: 0 amlodipine 5 mg Tablet 5 mg PO DAILY Qty: 30 RF: 2 aspirin 81 mg Tablet,Delayed Release (Dr/Ec) 81 mg PO DAILY Qty: 30 RF: 6 atorvastatin 80 mg tablet 80 mg PO BEDTIME Qty: 30 RF: 2 lisinopril 10 mg Tablet 10 mg PO DAILY Qty: 30 RF: 2 bumetanide 1 mg Tablet 1 mg PO DAILY Qty: 30 RF: 2 metoprolol succinate 100 mg Tablet Extended Release 24 Hr 100 mg PO DAILY Qty: 30 RF: 3 Klor-Con M20 20 mEq Tablet,Er Particles/Crystals 20 meq PO DAILY Qty: 30 RF: 3 metoprolol succinate 25 mg tablet extended release 24 hr 25 mg PO DAILY Qty: 30 RF: 2 Plavix 75 mg tablet 75 mg PO DAILY Qty: 30 RF: 2 No Action No Known Home Medications RF: 0 Discharge Orders: Discharge Order (Routine); Ordered 10/28/21 Ordered By: Liliam Rocha Referrals: [facility] [Provider Group] - 1 week (Pacemaker clinic [facility] will be contacting you with your follow up appointments for pacemaker check. ) Jasvir Stephens MD [Physician] - 1 week ([facility] will be contacting you for follow up appointments with Dr Stephens ) Rossy Rm FNP [Nurse Practitioner] - 11/04/21 12:45 pm Alaina Wright FNP-C [Referring] - 11/04/21 10:30 am (You have a follow up appointment at the [facility] on November 04 at 10:30. If you are unable to keep this appointment please contact your provider to arrange your follow up care.) Amira August MD [Physician] - 12/08/21 3:00 pm (You have an appointment with Dr. August on December 08 at 3:00 pm If you are unaable to keep this appointment please contact [facility] to arrange your Follow up care.) Discharge Diet: Cardiac and Low Salt Discharge Activity: Limit activity as instructed Patient Instructions: Sulfamethoxazole/Trimethoprim (By mouth) (Bactrim, Bactrim DS,..., Metoprolol (By mouth) (Lopressor, Toprol XL), Lisinopril (By mouth), Bumetanide (By mouth) (Bumex), Potassium Chloride (By mouth), Aspirin (By mouth), Amlodipine (By mouth), Atorvastatin (By mouth), Clopidogrel (By mouth) (Plavix), Heart Attack (DC), Opioid Safety, Post Angiogram Home Care Instructions, Post Heart Attack Stoplight, Post Pacemaker - Stephens Activity Restrictions/Additional Instructions: Bactrim DS 1 tablet p.o. twice daily for 3 days No swimming or tub baths x2 weeks May shower after 3 days with dressing off Dry incision completely after showering. May recover if desired to prevent irritation from clothing Report any redness, increasing pain, increasing swelling, fever, or drainage from incision Do not raise left arm above eye level for 2 weeks No heavy lifting or pulling x2 weeks Discharge Attestations Time Spent in Discharge Care*: less than 30 min Quality Metrics Clinical Quality Measures During this hospital stay, did patient experience: AMI Clinical Trial Participant: No Contraindication to aspirin (AMI): Aspirin given Contraindication to statin: Statin prescribed Contraindication to PCI: Intervention not indicated Contraindication to Fibrinolytics: Alternative treatment initiated Coding Level of Care Code Acute Chg FW DC note Diagnoses Non-ST elevation VA (NSTEMI) I21.4 CHF (congestive heart failure) I50.9 HTN (hypertension) I10 Dyslipidemia E78.5
[2021-10-28 14:27] LABS: Bilirubin Urine Neg (Negative); Blood Urine Neg (Negative); Glucose Urine UA Norm (Normal); Ketones Urine Negative (Negative); Leukocyte Esterase Urine Negative (Negative); Nitrate Urine Negative (Negative); Protein Urine Neg (Negative); Specific Gravity, Urine 1.025 (1.005-1.030); Urine Appearance Clear (CLEAR); Urine Color Yellow (Yellow); Urobilinogen Urine Norm (Negative); pH Urine 5 (5-7)
--- NOTE | 2021-10-28 20:13 | PC.NURSE ---
discharge instructions given and explained...also instructed in impt of daily weights and fluid restriction..s/sxs chf and when to report sxsx.pt verb understanding of instructions.discharged via w/c to exit.pt's friend to drive pt home
== END 2021-10-28 20:00 | disposition home or self-care (01) | DRG 222 ==
LOC: ER 10-22 02:04 → CSU 10-22 02:31
PROVIDERS: Internal Medicine; Internal Medicine Cardiovascular Disease; Thoracic Surgery (Cardiothoracic Vascular Surgery); Admitting Provider Student in an Organized Health Care Education/Training Program; Emergency Provider Emergency Medicine; Visit Provider Internal Medicine
PROC: B2131ZZ Fluoroscopy of Multiple Coronary Artery Bypass Grafts using Low Osmolar Contrast (ICD-10-PCS; principal; 2021-10-24 09:00)
PROC: 0JH608Z Insertion of Defibrillator Generator into Chest Subcutaneous Tissue and Fascia, Open Approach (ICD-10-PCS; CPT 33249; principal; 2021-10-27 13:40)
DX: I21.4 Non-ST elevation (NSTEMI) myocardial infarction (principal); I50.21 Acute systolic (congestive) heart failure; I25.810 Atherosclerosis of coronary artery bypass graft(s) without angina pectoris; I69.351 Hemiplegia and hemiparesis following cerebral infarction affecting right dominant side; N17.9 Acute kidney failure, unspecified; I47.2 Ventricular tachycardia; I16.1 Hypertensive emergency; I25.10 Atherosclerotic heart disease of native coronary artery without angina pectoris; I11.0 Hypertensive heart disease with heart failure; I71.4 Abdominal aortic aneurysm, without rupture; I71.6 Thoracoabdominal aortic aneurysm, without rupture; I25.2 Old myocardial infarction; F17.210 Nicotine dependence, cigarettes, uncomplicated; E78.5 Hyperlipidemia, unspecified; E87.6 Hypokalemia; Z91.19 Patient's noncompliance with other medical treatment and regimen; I08.1 Rheumatic disorders of both mitral and tricuspid valves; I25.5 Ischemic cardiomyopathy; J40 Bronchitis, not specified as acute or chronic; I27.20 Pulmonary hypertension, unspecified
CPT/HCPCS: 36415; 36416; 71045; 71275; 76000; 80048; 80053; 80061; 80307; 81003; 82962; 83036; 83735; 83880; 84145; 84443; 84484; 85025; 87070; 87077; 87186; 87205; 87426; 93005; 93306; 93455; 94640; 94660; 96360; 96372; 99285; C1722; C1769; C1777; C1887; C1894; J0690; J1644; J1650; J1940; J2250; J2704; J3010; J3475; J3480; J3490; J7030; Q9967

== ENCOUNTER → 2021-11-04 13:53 | Outpatient (BNVA) | payer MEDICARE, SELFPAY | PROVIDERS: PCP Nurse Practitioner Family; Visit Provider Nurse Practitioner Family | DX: Z09 Encounter for follow-up examination after completed treatment for conditions other than malignant neoplasm (principal); I50.42 Chronic combined systolic (congestive) and diastolic (congestive) heart failure; I25.5 Ischemic cardiomyopathy; I42.0 Dilated cardiomyopathy; I10 Essential (primary) hypertension; Z95.810 Presence of automatic (implantable) cardiac defibrillator | CPT/HCPCS: 80048 ==

== ENCOUNTER → 2022-08-13 10:06 | Outpatient (BNVA) | payer MEDICARE, SELFPAY | PROVIDERS: PCP Nurse Practitioner Family; Visit Provider Internal Medicine Cardiovascular Disease | DX: I11.0 Hypertensive heart disease with heart failure (principal); I50.42 Chronic combined systolic (congestive) and diastolic (congestive) heart failure; I25.5 Ischemic cardiomyopathy; E78.5 Hyperlipidemia, unspecified; I71.4 Abdominal aortic aneurysm, without rupture; Z95.810 Presence of automatic (implantable) cardiac defibrillator; Z87.891 Personal history of nicotine dependence; Z95.1 Presence of aortocoronary bypass graft | CPT/HCPCS: 99214 ==

== ENCOUNTER → 2022-08-27 10:39 | Outpatient (BNVA) | payer MEDICARE, SELFPAY | PROVIDERS: PCP Nurse Practitioner Family; Visit Provider Internal Medicine Cardiovascular Disease | DX: Z45.02 Encounter for adjustment and management of automatic implantable cardiac defibrillator (principal) | CPT/HCPCS: 93282 ==

== ENCOUNTER → 2023-01-04 13:54 | Outpatient (BNVA) | payer MEDICARE, SELFPAY | PROVIDERS: PCP Nurse Practitioner Family; Visit Provider Internal Medicine Cardiovascular Disease | DX: Z45.02 Encounter for adjustment and management of automatic implantable cardiac defibrillator (principal) | CPT/HCPCS: 93296 ==

== ENCOUNTER → 2023-05-13 09:36 | Outpatient (BNVA) | payer MEDICARE, SELFPAY | PROVIDERS: PCP Nurse Practitioner Family; Visit Provider Internal Medicine Cardiovascular Disease | DX: I11.0 Hypertensive heart disease with heart failure (principal); I50.42 Chronic combined systolic (congestive) and diastolic (congestive) heart failure; I25.5 Ischemic cardiomyopathy; I71.40 Abdominal aortic aneurysm, without rupture, unspecified; E78.5 Hyperlipidemia, unspecified; Z87.891 Personal history of nicotine dependence | CPT/HCPCS: 99214 ==

== ENCOUNTER → 2023-08-10 12:44 | Outpatient (BNVA) | payer MEDICARE, SELFPAY | PROVIDERS: PCP Nurse Practitioner Family; Visit Provider Internal Medicine Cardiovascular Disease | DX: Z45.02 Encounter for adjustment and management of automatic implantable cardiac defibrillator (principal) | CPT/HCPCS: 93296 ==

== ENCOUNTER → 2023-11-30 12:45 | Outpatient (BNVA) | payer MEDICARE, SELFPAY | PROVIDERS: PCP Nurse Practitioner Family; Visit Provider Internal Medicine Cardiovascular Disease | DX: Z45.02 Encounter for adjustment and management of automatic implantable cardiac defibrillator (principal) | CPT/HCPCS: 93296 ==

== ENCOUNTER → 2024-05-31 15:23 | Outpatient (BNVA) | payer MEDICARE, SELFPAY | PROVIDERS: PCP Nurse Practitioner Family; Visit Provider Internal Medicine Cardiovascular Disease | DX: R06.02 Shortness of breath (principal) | CPT/HCPCS: 80048; 83880; 93005; 99215 ==